=== PATIENT | male | born 1940 | race Caucasian/White ===

== ENCOUNTER → 2016-08-27 | Outpatient (CLI) | payer MEDICARE, OTHER ==
--- NOTE | 2016-08-27 07:34 | US ---
EXAMINATION TYPE: US abdomen complete DATE OF EXAM: 08/27/2016 7:14 AM COMPARISON: Renal ultrasound 02/13/2016. CLINICAL HISTORY: 76-year-old male with hepatosplenomegaly , pain RUQ on physician's exam. TECHNIQUE: Multiple sonographic images of the abdomen were obtained. FINDINGS: Liver Length:15.2 cm Gallbladder Wall: 0.3 cm, upper limits of normal. CBD: 0.3 cm Spleen: 11.3 cm Right Kidney: 10.8 x 4.7 x 3.9 cm Left Kidney: 10.2 x 4.8 x 3.8 cm Pancreas: large body habitus, overlying bowel gas not seen well Liver: Normal size with overall normal homogeneous echotexture and no focal lesion. Gallbladder: No abnormal gallbladder distention, wall thickening, or pericholecystic fluid. Multiple shadowing calculi are present measuring up to 1.5 cm. Evidence for sonographic Pollack's sign: No CBD: Within normal limits. Spleen: Within normal limits. Right Kidney: No hydronephrosis. There is a tiny 6 mm hypoechoic structure within the midpole probabl y representing a small cyst. Internal echoes could represent debris or artifact. Left Kidney: No hydronephrosis. There is a small 8 mm parapelvic cyst at the midpole. Upper IVC: large body habitus, overlying bowel gas, not seen well Abd Aorta: large body habitus, overlying bowel gas, not seen well IMPRESSION: 1. Liver and spleen measurements as above. 2. Suboptimal visualization of the pancreas, IVC, and abdominal aorta with a subcentimeter probable c yst within each kidney. Otherwise, unremarkable sonographic examination of the abdomen. Normal Values: Liver Length: < 16cm wnl, 17-18cm upper limits, >18cm enlarged Spleen Length = < 13cm Renal Length = 9 - 12cm GB Wall: < 0.3cm CBD: < 0.6cm or < 1.0cm post cholecystectomy
== END | disposition home or self-care (01) ==
LOC: RADUSWWP 06:50
PROVIDERS: ATTEND Internal Medicine
DX: R16.2 Hepatomegaly with splenomegaly, not elsewhere classified (principal)
CPT/HCPCS: 76700

== ENCOUNTER → 2016-11-10 | Outpatient (CLI) | payer MEDICARE, OTHER ==
[2016-11-10 13:18] LABS: Calcium 9.1 mg/dL (8.4-10.2); Potassium 4.8 mmol/L (3.5-5.1)
== END | disposition home or self-care (01) ==
LOC: LABWHC1 12:21
PROVIDERS: ATTEND Internal Medicine
DX: M19.90 Unspecified osteoarthritis, unspecified site (principal); T50.905A Adverse effect of unspecified drugs, medicaments and biological substances, initial encounter
CPT/HCPCS: 36415; 80048; 84450; 84460

== ENCOUNTER → 2017-02-17 | Outpatient (CLI) | payer MEDICARE, OTHER ==
[2017-02-17 10:02] LABS: Basophils % (A) 1 %; CH 32.5; CHCM 33.3; Eosinophils # (A) 0.5 k/uL (0-0.7); Eosinophils % (A) 8 %; HCT 42.4 % (39.0-53.0); HDW 2.19; HGB 14.5 gm/dL (13.0-17.5); Luc # (Auto) 0.07; Luc % (Auto) 1; Lymphocytes # (A) 1.3 k/uL (1.0-4.8); Lymphocytes % (A) 21 %; MCH 33.5 pg (25.0-35.0); MCHC 34.2 g/dL (31.0-37.0); MCV 97.9 fL (80.0-100.0); Monocytes # (A) 0.3 k/uL (0-1.0); Monocytes % (A) 4 %; Neutrophils % (A) 65 %; RBC 4.33 m/uL (4.30-5.90); RDW 13.3 % (11.5-15.5); WBC 6.2 k/uL (3.8-10.6); WBC (Perox) 6.28
[2017-02-17 11:16] LABS: Erythrocyte Sedimentation Rate 3 mm/hr (0-15)
[2017-02-17 12:23] LABS: ALT 29 U/L (21-72); AST 27 U/L (17-59); Alkaline Phosphatase 56 U/L (38-126); Anion Gap 9 mmol/L; Blood Urea Nitrogen 30 mg/dL (9-20); Calcium 9.3 mg/dL (8.4-10.2); Carbon Dioxide 27 mmol/L (22-30); Chloride 108 mmol/L (98-107); Cholesterol 108 mg/dL (<200); Creatine Kinase 41 U/L (55-170); Glucose 102 mg/dL (74-99); HDL Cholesterol 43 mg/dL (40-60); Non-African American GFR(MDRD) 46 (>60 ml/min/1.73 sqM); Potassium 4.9 mmol/L (3.5-5.1); Sodium 144 mmol/L (137-145); Total Bilirubin 0.8 mg/dL (0.2-1.3); Total Protein 6.8 g/dL (6.3-8.2); Triglycerides 58 mg/dL (<150); Uric Acid 5.2 mg/dL (3.5-8.5)
[2017-02-17 13:54] LABS: Hemoglobin A1C 5.7 % (4.2-6.1)
[2017-02-17 14:26] LABS: C Reactive Protein <5.0 mg/L (<10.0)
== END | disposition home or self-care (01) ==
LOC: LABWHC1 09:16
PROVIDERS: ATTEND Internal Medicine
DX: Z00.00 Encounter for general adult medical examination without abnormal findings (principal); I12.9 Hypertensive chronic kidney disease with stage 1 through stage 4 chronic kidney disease, or unspecified chronic kidney disease; N18.3 Chronic kidney disease, stage 3 (moderate); E78.5 Hyperlipidemia, unspecified; E55.9 Vitamin D deficiency, unspecified; N40.0 Benign prostatic hyperplasia without lower urinary tract symptoms; J44.9 Chronic obstructive pulmonary disease, unspecified; M10.9 Gout, unspecified; I25.10 Atherosclerotic heart disease of native coronary artery without angina pectoris
CPT/HCPCS: 36415; 80053; 80061; 82306; 82550; 83036; 84153; 84443; 84550; 85025; 85652; 86140

== ENCOUNTER → 2017-08-19 | Outpatient (CLI) | payer MEDICARE, OTHER ==
[2017-08-19 10:15] LABS: HCT 44.2 % (39.0-53.0); HGB 13.6 gm/dL (13.0-17.5); MCH 31.3 pg (25.0-35.0); MCHC 30.8 g/dL (31.0-37.0); MCV 101.7 fL (80.0-100.0); Macrocytosis Slight; Mean Platelet Volume 7.7; Platelet Count 202 k/uL (150-450); RBC 4.35 m/uL (4.30-5.90); WBC 7.7 k/uL (3.8-10.6)
[2017-08-19 10:31] LABS: Calcium 9.5 mg/dL (8.4-10.2); Potassium 5.1 mmol/L (3.5-5.1)
== END | disposition home or self-care (01) ==
LOC: LABWHC1 09:48
PROVIDERS: ATTEND Internal Medicine Clinical Cardiac Electrophysiology
DX: I48.1 Persistent atrial fibrillation (principal)
CPT/HCPCS: 36415; 80048; 85027

== ENCOUNTER 2017-09-02 09:16 | Day surgery (SDC) | payer MEDICARE, OTHER ==
[2017-08-25 13:03] VITALS: BMI 30.1
[~2017-09-02 09:16] MED LIST: SODIUM CHLORIDE 0.9% 1,000 ML IV ONE
[2017-09-02] MEDS ORDERED: ceFAZolin IN SWFI 2 GM/20 ML SYRINGE IVP STA (09:38)
[2017-09-02 10:18] LABS: Anion Gap 10 mmol/L; Blood Urea Nitrogen 27 mg/dL (9-20); Calcium 9.5 mg/dL (8.4-10.2); Carbon Dioxide 27 mmol/L (22-30); Chloride 107 mmol/L (98-107); Glucose 101 mg/dL (74-99); Potassium 4.3 mmol/L (3.5-5.1); Sodium 144 mmol/L (137-145)
[2017-09-02] MEDS ORDERED: fentaNYL (PF) 50 MCG/ML 2 ML AMP ONE (10:19)
[2017-09-02] MEDS ORDERED: SODIUM CHLORIDE 0.9% 1,000 ML IV ONE (10:19)
[2017-09-02] MEDS ORDERED: PROTAMINE SULFATE 10 MG/ML 25 ML VIAL IV ONE (10:19)
[2017-09-02] MEDS ORDERED: HYDROmorphone (PF) 1 MG/ML ONE (10:19)
[2017-09-02] MEDS ORDERED: HEPARIN SODIUM,PORCINE 10,000 UNIT/ML 1 ML VIAL ONE (10:19)
[2017-09-02] MEDS ORDERED: SUCCINYLCHOLINE CHLORIDE 100 MG/5 ML SYR IV ONE (10:19)
[2017-09-02] MEDS ORDERED: ePHEDrine SULFATE/0.9% NACL/PF 50 MG/5 ML SYRINGE IV ONE ×2 (10:19)
[2017-09-02] MEDS ORDERED: MIDAZOLAM 2 MG/2 ML VIAL ONE (10:19)
[2017-09-02] MEDS ORDERED: PROPOFOL 10 MG/ML 20 ML VIAL IV ONE (10:19)
[2017-09-02] MEDS ORDERED: LIDOCAINE 2% INJ 20 MG/ML SQ ONE ×2 (11:01→11:05)
[2017-09-02] MEDS ORDERED: HEPARIN SOD,PORK IN 0.45% NACL 25,000 UNIT in 0.45% NACL 1 500ML.BAG IV ONE ×2 (11:06)
[2017-09-02] MEDS ORDERED: IOHEXOL 350 MG/ML (PER ML) 100ML BTL INJ ONE (14:18)
--- NOTE | 2017-09-02 14:36 | P.PCN ---
Preoperative Diagnosis: Procedures performed (PVI - CRYO Ablation) Invasive hemodynamic monitoring while general anesthesia, right femoral arterial line for monitoring and sampling Comprehensive diagnostic EP study with attempted arrhythmia induction CS pacing and recording Drug infusion Catheter the mapping of the tachycardia (NOT 3D mapping) Intracardiac echocardiography Pulmonary vein isolation with transseptal and comprehensive EPS, 53330 Procedure details Patient was brought to the EP lab in a fasting state. Written informed consent was obtained prior to the procedure. Procedure performed under general anesthesia After initial muscle relaxant use, muscle relaxants were not given thereafter in order to assess phrenic nerve during procedure Patient prepped and draped as per protocol Full cryo-set up with standard preparation of the cryoablation tools done Femoral Venous access obtained on the right and left groins Sheaths placed Diagnostic catheters for the high right atrium, phrenic nerve stimulation and pacing, His bundle, RV and coronary sinus placed Intracardiac echo catheter placed Long sheath placed in the right atrium Left and right transseptal catheterization performed under intracardiac echo guidance Intravenous heparin with aCT above 300 Later, catheter positioning and balloon positioning under intracardiac echo Baseline measurements Tachycardia cycle length 240 ms, eccentric activation in the coronary sinus. In sinus rhythm [place] interval 230 ms, QRS 112 ms, QT interval 440 ms HV interval difficult to obtain despite multiple attempts Comprehensive diagnostic EP study with drug infusion Atrial pacing performed from the high right atrium and the coronary sinus Entrainment mapping of the right atrium, left atrium and coronary sinus PPI greater than 450-500 ms in the lateral RA PPI between 280-300 ms in the right atrial septum PPI 260 ms in the mid-distal coronary sinus PPI 270-280 ms in the lateral LA Long PPI from the left atrial roof Transseptal catheterization performed RA pressure 11/5/8 LA pressure 17/5/11 Transseptal catheterization performed with standard sheath. The cryoablation sheath was then placed with an over the wire exchange without any acute complications. All 4 pulmonary veins were isolated in the following sequence: Left superior followed by left inferior followed by right superior followed by right inferior The cryo-ablation balloon was placed at the os of each vein 1.5 mL of IV dye was injected to confirm an occluded vein Goal during cryoablation was to achieve -30C in the first 30 seconds. If not the balloon was repositioned to obtain this result After completion of Cryoblation with durations from 180-240 seconds, entrance block was confirmed with the Attain circular catheter in a roving fashion around the antrum of the pulmonary veins Phrenic nerve pacing was performed from the SVC, right innominate vein area and diaphragm voltage was monitored as well as manually Parameter goals for each cryo freeze -30C by 30 seconds -40C by 60 seconds Mediated between minus 40-55 Thaw time greater than 10 seconds Balloon visualized by intracardiac echo to ensure that the proximal one third was within the left atrium/antrum Left superior pulmonary vein 2 Cryoblation's him a 118 seconds and 150 seconds, complete isolation, time to effect with the first lesion 80 seconds Left inferior pulmonary vein 3 minute lesion, single lesion time to effect less than 30 seconds Right superior pulmonary vein, during phrenic nerve pacing Single cryoablation 3 minutes, complete isolation Right inferior pulmonary vein, during phrenic nerve pacing 2 cryo lesions, 3 minutes each, complete isolation Roofline Roofline was made in the left atrium from the right superior to the left superior pulmonary veins. 3 balloon inflations, 60 seconds of cryoablation each Significant reduction in that program amplitude Electrical cardioversion 360 J biphasic shock, successful electrical cardioversion for atrial paced rhythm At the end of the procedure the Achieve catheter was once again used to check for entrance block Phrenic nerve stimulation was performed to confirm diaphragmatic stimulation the end of the procedure Cine fluoroscopy was performed at the very end of the procedure to confirm movement of both diaphragms with inspiration and expiration At the end of the procedure the patient was extubated Heparin was reversed Venous sheaths were removed and hemostasis assured Result Successful pulmonary vein isolation using cryo-ablation Roofline, 3 lesions 60 seconds each, significant reduction in amplitude Electrical cardioversion for atrial tachycardia cycle length of 240 ms, eccentric activation in the CS closest in treatment in the mid to distal CS and lateral LA Complete entrance block in all 4 veins confirmed No evidence for phrenic nerve injury Anesthesia: GETA Condition: stable
[2017-09-02] MEDS ORDERED: LACTATED RINGERS 1,000 ML IV ONE (14:38)
[2017-09-02] MEDS ORDERED: ACETAMINOPHEN TAB 325 MG TAB PO PRN (15:12)
[2017-09-02] MEDS ORDERED: HYDROcodone/APAP 5-325MG 1 EACH TAB PO PRN (15:12)
[2017-09-02] MEDS: ACETAMINOPHEN IV (For NPO) 1,000 MG in EMPTY BAG 1 BAG IVPB ONE ×2 (15:15→15:30)
--- NOTE | 2017-09-02 16:32 | CE ---
CARDIAC ELECTROPHYSIOLOGY REPORT Mr. Gonzalez Muniz underwent atrial fibrillation ablation. He has a dual-chamber pacemaker was interrogated and reprogrammed to DDD mode. Impedance was stable. At the end of the procedure. The pacemaker was reinterrogated and reprogrammed. Atrial pacing threshold 0.7 V at 0.4 milliseconds. P waves 2.2 mV. Pacing impedance 380 ohms. RV pacing 1 V at 0.4 milliseconds. Sensing greater than 12 mV. Pacing impedance of 400 ohms. The pacing is programmed to DDDR mode, 50-130 ppm with a VIP mode turned on to minimize RV pacing. IMPRESSION: Stable pacemaker function post atrial fibrillation ablation. MMODL / IJN: [id number] /
[2017-09-02] MEDS ORDERED: ATORVASTATIN 40 MG TAB PO SCH (21:00)
[2017-09-02] MEDS ORDERED: FAMOTIDINE 20 MG TAB PO SCH (21:00)
[2017-09-02] MEDS: CARVEDILOL 6.25 MG TAB PO SCH (21:19)
[2017-09-03] MEDS ORDERED: FUROSEMIDE 40 MG TAB PO STA (07:49)
[2017-09-03] MEDS: CARVEDILOL 6.25 MG TAB PO SCH (08:13)
--- NOTE | 2017-09-03 08:14 | P.DS ---
Providers Attending physician: Hugo Khoury Primary care physician: [facility] Course: Patient is doing well from a chronic standpoint. He is lying comfortably in bed. He did walk up to the bathroom. Yesterday he had some oozing from the groin but now it has settled down. There is no bleeding there is no swelling there is minimal to no pain to touch On examination he is afebrile 97.6 daily Fahrenheit, pulse rate in the 50s sinus rhythm respirations normal no S3 distress blood pressure 141/62 mmHg Heart sounds S1-S2 are normal no murmurs no gallops no rub Breath sounds are clear occasional crackles, scattered at the bases Abdomen soft nontender Groins healed well as minimal to no tenderness no swelling No lower extremity edema Impression Recurrent paroxysmal atrial fibrillation, increasing A. fib burden over the last few years. 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 Prior to cardioversion with catheter mapping it was determined that the PPI was best in the mid to distal coronary sinus and the lateral aspect of the left atrium Once visit recurrence of atrial tachycardia he'll be brought back for EP study and wrapping and radial frequency ablation. No changes in medications Continue ROYERA Plan Discharge home by 3 PM if he is stable and groins healing well. He's been instructed amulet in the hallways 1 dose of Lasix 40 mg by mouth stat Plan - Discharge Summary New Discharge Prescriptions: Continue Montelukast [Singulair] 10 mg PO QAM Famotidine 40 mg PO HS Aspirin 81 mg PO DAILY #30 chewable Atorvastatin [Lipitor] 40 mg PO HS Fluticasone Nasal [place] [Flonase Nasal [place]] 1 spr EA NOSTRIL DAILY PRN PRN Reason: Allergy Symptoms amLODIPine [Norvasc] 10 mg PO DAILY Tamsulosin [Flomax] 0.4 mg PO DAILY Edoxaban Tosylate [Savaysa] 60 mg PO DAILY Diclofenac Sodium [Voltaren] 50 mg PO BID Carvedilol [Coreg] 6.25 mg PO BID Allopurinol [Zyloprim] 100 mg PO DAILY Losartan Potassium 100 mg PO DAILY Discharge Medication List Famotidine 40 mg PO HS 03/26/14 [History] Montelukast [Singulair] 10 mg PO QAM 03/26/14 [History] Aspirin 81 mg PO DAILY #30 chewable 03/27/14 [Rx] Atorvastatin [Lipitor] 40 mg PO HS 04/24/14 [History] Fluticasone Nasal [place] [Flonase Nasal [place]] 1 spr EA NOSTRIL DAILY PRN [History] Allopurinol [Zyloprim] 100 mg PO DAILY 08/25/17 [History] Carvedilol [Coreg] 6.25 mg PO BID 08/25/17 [History] Diclofenac Sodium [Voltaren] 50 mg PO BID 08/25/17 [History] Edoxaban Tosylate [Savaysa] 60 mg PO DAILY 08/25/17 [History] Losartan Potassium 100 mg PO DAILY 08/25/17 [History] Tamsulosin [Flomax] 0.4 mg PO DAILY 08/25/17 [History] amLODIPine [Norvasc] 10 mg PO DAILY 08/25/17 [History] Follow up Appointment(s)/Referral(s): Hugo Khoury MD [STAFF PHYSICIAN] - 2 Weeks Patient Instructions/Handouts: Cardiac Ablation (DC) Activity/Diet/Wound Care/Special Instructions: Post EP study - Ablation instructions 1. Keep access sites dry for 2 days. 2. No heavy lifting or straining for 2 days. 3. Avoid bending the hips repeatedly for 2 days. 4. You may go up and down stairs slowly Call if the following is noted 1. Bleeding, increasing swelling or pain at the access sites. 2. Increasing chest discomfort, especially upon taking a deep breath. 3. Increasing shortness of breath, at rest or with exertion. 4. Undue cough / phlegm 5. Difficulty or pain while swallowing. 6. Pain or change in color in the extremities. 7. Fever, chills, rigors. 8. Increasing headache or neurologic symptoms. 9. Dizziness, fainting, palpitations Follow-up with Dr. Khoury about 2 weeks. No changes in home medications and continue anticoagulation Discharge Disposition: HOME SELF-CARE
[2017-09-03] MEDS ORDERED: EDOXABAN TOSYLATE 60 MG TABLET PO SCH (09:00)
[2017-09-03] MEDS ORDERED: amLODIPine 10 MG TAB PO SCH (09:00)
[2017-09-03] MEDS ORDERED: LOSARTAN 50 MG TAB PO SCH (09:00)
[2017-09-03] MEDS ORDERED: TAMSULOSIN 0.4 MG CAP.ER.24H PO SCH (09:00)
[2017-09-03] MEDS ORDERED: ALLOPURINOL 100 MG TAB PO SCH (09:00)
[2017-09-03] MEDS ORDERED: MONTELUKAST 10 MG TAB PO SCH (09:00)
[2017-09-03] MEDS ORDERED: ASPIRIN 81 MG PO SCH (09:00)
[2017-09-03 11:57] VITALS: BP 122/58; PULSE 56; RESP 18; TEMP 97.1
[2017-09-04] MEDS ORDERED: EDOXABAN TOSYLATE 30 MG TABLET PO SCH (09:00)
== END 2017-09-03 15:16 | disposition home or self-care (01) ==
LOC: CATHEP 09:16 → 6SEL 13:50 → CATHEP 09-03 15:16
PROVIDERS: ATTEND Internal Medicine Clinical Cardiac Electrophysiology
DX: I48.0 Paroxysmal atrial fibrillation (principal); Z79.01 Long term (current) use of anticoagulants; I25.10 Atherosclerotic heart disease of native coronary artery without angina pectoris; I10 Essential (primary) hypertension; Z95.1 Presence of aortocoronary bypass graft; Z95.0 Presence of cardiac pacemaker; E78.5 Hyperlipidemia, unspecified; I73.9 Peripheral vascular disease, unspecified; Z82.49 Family history of ischemic heart disease and other diseases of the circulatory system; I49.5 Sick sinus syndrome; I25.2 Old myocardial infarction; I42.8 Other cardiomyopathies; Z95.5 Presence of coronary angioplasty implant and graft; I25.5 Ischemic cardiomyopathy; G47.33 Obstructive sleep apnea (adult) (pediatric); Z79.02 Long term (current) use of antithrombotics/antiplatelets; Z79.82 Long term (current) use of aspirin; Z79.51 Long term (current) use of inhaled steroids; Z79.899 Other long term (current) drug therapy
CPT/HCPCS: 92960; 93662; 93609; 93656; 80048; 84443; C1894 ×3; C1769 ×4; C1730 ×3; C1759; C1893; C1733; C1766; J2001; J2720; J2250; J1644 ×2; Q9967; J0690; J3010; J1170; J0131; J0330; J2704

== ENCOUNTER → 2018-02-03 | Day surgery (SDC) | payer MEDICARE, OTHER ==
[2018-01-31 11:03] VITALS: BMI 29.4
[~2018-02-03] MED LIST changes: -SODIUM CHLORIDE 0.9% 1,000 ML IV ONE; +SODIUM CHLORIDE 0.9% 1,000 ML IV SCH
[2018-02-03 06:55] VITALS: PULSE 60; RESP 18; TEMP 97.7
[2018-02-03] MEDS: IOPAMIDOL-250 50ML BTL IV ONE ×2 (07:26→07:37)
--- NOTE | 2018-02-03 07:54 | P.PCN ---
Preoperative Diagnosis: Left upper extremity venogram Indication for the procedure: Patient awaiting upgrade to an LV lead, biventricular pacemaker prior to AV junction modification Details of procedure Left upper extremity venogram was performed. Occlusion was noted at 2 levels 1 at the axillary subclavian junction and the second within the subclavian to its the innominate vein. 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
[2018-02-03 08:00] VITALS: BP 161/80
== END ==
LOC: CATHEP 06:28
PROVIDERS: ATTEND Internal Medicine Clinical Cardiac Electrophysiology
DX: I67.2 Cerebral atherosclerosis (principal); I10 Essential (primary) hypertension; I47.1 Supraventricular tachycardia; I25.5 Ischemic cardiomyopathy; Z95.0 Presence of cardiac pacemaker; I25.10 Atherosclerotic heart disease of native coronary artery without angina pectoris; I73.9 Peripheral vascular disease, unspecified; E78.5 Hyperlipidemia, unspecified; Z82.49 Family history of ischemic heart disease and other diseases of the circulatory system; Z95.1 Presence of aortocoronary bypass graft; Z95.5 Presence of coronary angioplasty implant and graft; I25.2 Old myocardial infarction; Z79.02 Long term (current) use of antithrombotics/antiplatelets; Z79.82 Long term (current) use of aspirin; Z79.51 Long term (current) use of inhaled steroids; Z79.899 Other long term (current) drug therapy
CPT/HCPCS: 36005; 75820; Q9966

== ENCOUNTER → 2018-02-23 | Outpatient (CLI) | payer MEDICARE, OTHER ==
[2018-02-23 10:05] LABS: Basophils % (A) 0 %; Eosinophils # (A) 0.4 k/uL (0-0.7); Eosinophils % (A) 7 %; HCT 42.5 % (39.0-53.0); HGB 13.8 gm/dL (13.0-17.5); Lymphocytes # (A) 1.2 k/uL (1.0-4.8); Lymphocytes % (A) 20 %; MCHC 32.5 g/dL (31.0-37.0); MCV 98.5 fL (80.0-100.0); Mean Platelet Volume 6.9; Monocytes # (A) 0.4 k/uL (0-1.0); Monocytes % (A) 6 %; Neutrophils % (A) 66 %; Platelet Count 191 k/uL (150-450); RBC 4.32 m/uL (4.30-5.90); RDW 13.3 % (11.5-15.5); WBC 6.1 k/uL (3.8-10.6)
[2018-02-23 11:51] LABS: Erythrocyte Sedimentation Rate 5 mm/hr (0-15)
[2018-02-23 14:37] LABS: ALT 37 U/L (21-72); AST 31 U/L (17-59); Alkaline Phosphatase 55 U/L (38-126); Anion Gap 8 mmol/L; Blood Urea Nitrogen 34 mg/dL (9-20); C Reactive Protein <5.0 mg/L (<10.0); Calcium 9.5 mg/dL (8.4-10.2); Carbon Dioxide 28 mmol/L (22-30); Chloride 109 mmol/L (98-107); Cholesterol 106 mg/dL (<200); Creatine Kinase 56 U/L (55-170); Glucose 98 mg/dL (74-99); HDL Cholesterol 39 mg/dL (40-60); LDL Cholesterol,Calculated 58 mg/dL (0-99); Magnesium 2.2 mg/dL (1.6-2.3); Phosphorus 3.4 mg/dL (2.5-4.5); Potassium 4.9 mmol/L (3.5-5.1); Sodium 145 mmol/L (137-145); Total Bilirubin 0.6 mg/dL (0.2-1.3); Total Protein 6.4 g/dL (6.3-8.2); Triglycerides 45 mg/dL (<150); Uric Acid 5.9 mg/dL (3.5-8.5)
[2018-02-23 14:46] LABS: Prostate Specific Antigen 2.16 ng/mL (0.00-4.00)
[2018-02-23 16:31] LABS: Vitamin D 25 Hydroxy 43.7 ng/mL (30.0-100.0)
[2018-02-23 18:14] LABS: Hemoglobin A1C 5.4 % (4.0-6.0)
[2018-02-23 18:51] LABS: Parathyroid Hormone Intact 63.6 pg/mL (14.0-72.0)
== END | disposition home or self-care (01) ==
LOC: LABWHC1 09:15
PROVIDERS: ATTEND Internal Medicine
DX: N40.0 Benign prostatic hyperplasia without lower urinary tract symptoms (principal); J44.9 Chronic obstructive pulmonary disease, unspecified; E11.22 Type 2 diabetes mellitus with diabetic chronic kidney disease; I12.9 Hypertensive chronic kidney disease with stage 1 through stage 4 chronic kidney disease, or unspecified chronic kidney disease; N18.3 Chronic kidney disease, stage 3 (moderate); E78.5 Hyperlipidemia, unspecified; E03.9 Hypothyroidism, unspecified; E55.9 Vitamin D deficiency, unspecified
CPT/HCPCS: 36415; 80053; 80061; 82306; 82550; 83036; 83735; 83970; 84100; 84153; 84443; 84550; 85025; 85652; 86140

== ENCOUNTER 2018-03-01 09:17 | Day surgery (SDC) | payer MEDICARE, OTHER ==
[2018-02-23 13:20] VITALS: BMI 28.5
[~2018-03-01 09:17] MED LIST changes: +DEXAMETHASONE SOD PHOSPHATE 10 MG/ML 1 ML VIAL IV ONE; +LACTATED RINGERS 1,000 ML IV SCH; +LIDOCAINE 1% 20 ML VIAL (10MG/ML) FOR IV START INTRADERMA PRN; +MIDAZOLAM 2 MG/2 ML VIAL IV PRN; +ONDANSETRON 4 MG/2 ML VIAL IVP ONE; +fentaNYL (PF) 50 MCG/ML 2 ML AMP IV PRN
[2018-03-01] MEDS ORDERED: SODIUM CHLORIDE 0.9% 1,000 ML IV ONE (09:56)
[2018-03-01] MEDS ORDERED: ceFAZolin IN SWFI 2 GM/20 ML SYRINGE IVP ONE (10:30)
[2018-03-01] MEDS ORDERED: PROTAMINE SULFATE 10 MG/ML 5 ML VIAL IV ONE (10:41)
[2018-03-01] MEDS ORDERED: NEOSTIGMINE 1 MG/ML 10 ML VIAL ONE (10:41)
[2018-03-01] MEDS ORDERED: fentaNYL (PF) 50 MCG/ML 2 ML AMP ONE (10:41)
[2018-03-01] MEDS ORDERED: SUCCINYLCHOLINE CHLORIDE 100 MG/5 ML SYR IV ONE (10:41)
[2018-03-01] MEDS ORDERED: GLYCOPYRROLATE 0.2 MG/ML 2 ML VIAL ONE (10:41)
[2018-03-01] MEDS ORDERED: ISOPROTERENOL 250 MCG/1.25 ML SYR IV ONE (10:41)
[2018-03-01] MEDS ORDERED: PHENYLEPHRINE-0.9% NACL SYG 1 MG/10 ML SYRINGE ONE (10:41)
[2018-03-01] MEDS ORDERED: HEPARIN SODIUM,PORCINE 10,000 UNIT/ML 1 ML VIAL ONE (10:41)
[2018-03-01] MEDS ORDERED: VECURONIUM 10 MG VIAL IV ONE (10:41)
[2018-03-01] MEDS ORDERED: MIDAZOLAM 2 MG/2 ML VIAL ONE (10:41)
[2018-03-01] MEDS ORDERED: PROPOFOL 10 MG/ML 20 ML VIAL IV ONE (10:41)
[2018-03-01] MEDS ORDERED: LIDOCAINE 1% INJ 10MG/ML (20 ML MDV) ONE (11:03)
[2018-03-01] MEDS ORDERED: LIDOCAINE 1% INJ 10MG/ML (20 ML MDV) SQ ONE (11:42)
[2018-03-01] MEDS ORDERED: HEPARIN SODIUM (1,000 UNIT/ML) 1,000 UNIT in SODIUM CHLORIDE 0.9% 1,000 ML IRRIGATION ONE (12:53)
[2018-03-01] MEDS ORDERED: HEPARIN SODIUM,PORCINE/D5W PMX 25,000 UNIT in DEXTROSE/WATER 1 500ML.BAG IV ONE (12:53)
[2018-03-01] MEDS ORDERED: ACETAMINOPHEN TAB 325 MG TAB PO PRN (16:00)
[2018-03-01] MEDS ORDERED: ACETAMINOPHEN IV (For NPO) 1,000 MG in EMPTY BAG 1 BAG IVPB ONE (16:00)
[2018-03-01] MEDS ORDERED: HYDROcodone/APAP 5-325MG 1 EACH TAB PO PRN (16:00)
--- NOTE | 2018-03-01 17:26 | CE ---
CARDIAC ELECTROPHYSIOLOGY REPORT Gonzalez Muniz is a 78-year-old male patient who has undergone 2 ablations in the past, one in 2016 for atrial flutter and a second one for atrial fibrillation with PVI about 7 months back. He came to the office with an atrial tachycardia with negatively oriented electrograms in the inferior leads and positive in lead V1. He was brought in for an EP study and ablation. When he was brought to the EP lab he was in atrial fibrillation with ventricular pacing. When he is in sinus rhythm his V pacing percentage is very low. When in atrial fibrillation his V pacing percentage is very high, close to 100%. He has cardiomyopathy, ejection fraction 45%, which is ischemic in nature. He has had coronary artery disease, coronary artery bypass grafting in the past. Venous sheaths were placed in the right and left femoral veins and high right atrial catheter, His bundle catheter and coronary sinus catheter were placed. Later an intracardiac echo catheter and mapping ablation catheter were placed. He was in atrial fibrillation at the start of the study with intracardiac electrograms revealing an organized atrial fibrillation, but definitely not an atrial tachycardia. The surface ECG also suggested atrial fibrillation, not an atrial tachycardia. Therefore he first underwent electrical cardioversion under anesthesia. Following that, a detailed EP study was performed to induce atrial tachycardia, but we were unsuccessful inducing atrial tachycardia with pacing from the high right atrium, coronary sinus and with burst stimulation and extrastimulation from multiple sites up to triple extrastimuli, both on and off Isuprel. Sinus node recovery times were checked. AV node conduction, VA conduction was interrogated. Following that, a decision was made to proceed with mapping of the right and left atria, to interrogate the pulmonary veins, roof line in the left atrium connecting the 2 superior veins as well as interrogate the right atrial flutter line. Intracardiac echocardiography was performed. The interatrial septum was identified. Pulmonary veins were identified and tagged. Transseptal catheterization was performed. RA pressure 10 x 5 x 8 mmHg, LA pressure 26 x 3 x 14 mmHg. A sheath was placed in the left atrium and an irrigated-tip catheter was placed in the left atrium. Voltage mapping was performed. This revealed that the left-sided veins were completely quiescent. The right-sided veins were also quiescent, but in the nico anteriorly there was evidence for recovery of conduction. This was in the anterior nico close to the antrum. First pulmonary vein isolation was performed and an RF ablation was performed from the roof down to the 6 o'clock position with special emphasis on the antral aspect of the nico. RF ablation was applied in this area and there were no further electrograms noted here. Non-capture was noted here. An exit block was noted from the right-sided veins. Previously the left-sided veins had been interrogated, and exit blocks had already been proven. Exit block was noted from all of the sites in the right superior and right inferior pulmonary veins. Left atrial roof line was made. The irrigated catheter was used and a power of 225 serrato was used. Complete RF line of block was made, which was interrogated with pacing maneuvers as well as on 100% grid. No anatomic gaps were noted. Following that, the catheter was withdrawn. Heparin was stopped and the right atrial isthmus was interrogated. Intracardiac echocardiography was used to make an anatomic map. Voltage map was then performed. There was an area of normal voltage in the mid isthmus and once this was ablated, there was complete line of block. However, a complete anatomic line of RF block was made once again in the cava tricuspid isthmus and with differential pacing proved bidirectional block. At the start of the procedure, the permanent pacemaker was interrogated and was reprogrammed to VVI mode at 50 beats per minute. At the end of the procedure, the pacemaker was interrogated. The RV threshold was less than 0.75 V at 0.5 milliseconds with a pacing impedance of 750 ohms. The device was then reprogrammed to DDDR mode with VIP mode on to minimize RV pacing. Rate responsiveness was turned on for the pacemaker. RESULT: 1. Patient presented with atrial fibrillation and required electrical cardioversion. 2. No atrial tachycardias were inducible despite atrial stimulation, burst stimulation, and with up to triple extrastimuli from multiple sites, both on and off Isuprel. 3. Pulmonary vein isolation as described above. 4. Linear ablation, left atrial roof, roof line. 5. Atrial flutter ablation. Patient tolerated the procedure well without any acute complications. PLAN: Continue anticoagulation. Please note that the patient's GFR was between 45 and 50. His creatinine was about 1.4 and hence dofetilide and sotalol were not considered. In addition, he has an occluded left subclavian venous system that needs a laser lead extraction to implant his bundle or an LV lead. Hence this has not yet been considered. MMODL / IJN: [id number] /
[2018-03-01] MEDS: CARVEDILOL 6.25 MG TAB PO SCH (18:53)
[2018-03-01] MEDS ORDERED: amLODIPine 10 MG TAB PO SCH (21:00)
[2018-03-01] MEDS ORDERED: ATORVASTATIN 40 MG TAB PO SCH (21:00)
[2018-03-01] MEDS ORDERED: FAMOTIDINE 20 MG TAB PO SCH (21:00)
[2018-03-01] MEDS ORDERED: ALLOPURINOL 100 MG TAB PO SCH (21:00)
[2018-03-01] MEDS ORDERED: TAMSULOSIN 0.4 MG CAP.ER.24H PO SCH (21:00)
[2018-03-02] MEDS: CARVEDILOL 6.25 MG TAB PO SCH (08:20)
[2018-03-02] MEDS ORDERED: LOSARTAN 50 MG TAB PO SCH (09:00)
[2018-03-02] MEDS ORDERED: ASPIRIN 81 MG PO SCH (09:00)
[2018-03-02] MEDS ORDERED: MONTELUKAST 10 MG TAB PO SCH (09:00)
[2018-03-02] MEDS ORDERED: EDOXABAN TOSYLATE 60 MG TABLET PO SCH (09:00)
--- NOTE | 2018-03-02 12:03 | DS ---
DISCHARGE SUMMARY Mr. Gonzalez Muniz is a 78-year-old male patient who underwent pulmonary vein isolation, left atrial roof line and atrial flutter ablation yesterday. He is doing well. He is in sinus rhythm. Head and neck examination is normal. Heart sounds are normal. Breath sounds are clear. His vitals are stable. He is sitting comfortably in bed. His groins have healed well. There is no hematoma. There is no swelling. Blood pressure 142/73 mmHg, pulse rate in the 50s, afebrile 97.9 degree Fahrenheit. Head and neck examination is normal. Heart sounds are normal. Lungs are clear on auscultation. IMPRESSION: 1. Pulmonary vein isolation, linear ablation of the left atrium, atrial flutter ablation, right-sided. 2. Persistent atrial fibrillation. 3. Sick sinus syndrome, status post permanent pacemaker implantation. 4. A 100% RV pacing during atrial fibrillation. 5. Mild ischemic cardiomyopathy, ejection fraction 45%. 6. Underlying coronary artery disease. SUGGEST: Continue anticoagulation. Continue current medications for ischemic cardiomyopathy and CAD and follow up with Dr. Khoury in 2 weeks. He will go home after his permanent pacemaker is interrogated. MMODL / IJN: [id number] /
[2018-03-02 13:24] VITALS: BP 149/83; PULSE 50; RESP 16; TEMP 98.3
== END 2018-03-02 13:58 | disposition home or self-care (01) ==
LOC: CATHEP 09:17 → 3OBS 15:35 → CATHEP 03-02 13:58
PROVIDERS: ATTEND Internal Medicine Clinical Cardiac Electrophysiology
DX: I47.1 Supraventricular tachycardia (principal); I25.5 Ischemic cardiomyopathy; I25.10 Atherosclerotic heart disease of native coronary artery without angina pectoris; I10 Essential (primary) hypertension; I49.5 Sick sinus syndrome; I25.2 Old myocardial infarction; E78.5 Hyperlipidemia, unspecified; Z95.1 Presence of aortocoronary bypass graft; Z95.5 Presence of coronary angioplasty implant and graft; Z82.49 Family history of ischemic heart disease and other diseases of the circulatory system; I73.9 Peripheral vascular disease, unspecified; Z79.02 Long term (current) use of antithrombotics/antiplatelets; Z79.82 Long term (current) use of aspirin; Z79.51 Long term (current) use of inhaled steroids; Z79.899 Other long term (current) drug therapy
CPT/HCPCS: 85347; 92960; 93662; 93653; C1769 ×2; C1894; C1730 ×2; C1759; C1893; C1732; J2250; J2720; J1644 ×3; J2710; J2001; J3010; J2370; J0330; J2704; J0690; 93656

== ENCOUNTER → 2018-08-30 | Outpatient (CLI) | payer MEDICARE, OTHER ==
[2018-08-30 22:18] LABS: Anion Gap 7.4 mmol/L (4.00-12.00); Calcium 9.1 mg/dL (8.7-10.3); Carbon Dioxide 27.6 mmol/L (21.6-31.8); Magnesium 1.9 mg/dL (1.5-2.4); Potassium 4.2 mmol/L (3.5-5.5)
== END | disposition home or self-care (01) ==
LOC: LABWHC1 11:25
PROVIDERS: ATTEND Internal Medicine
DX: E87.8 Other disorders of electrolyte and fluid balance, not elsewhere classified (principal)
CPT/HCPCS: 36415; 80048; 83735

== ENCOUNTER → 2018-09-01 | Outpatient (CLI) | payer MEDICARE, OTHER ==
--- NOTE | 2018-09-01 14:19 | CT ---
EXAMINATION TYPE: CT brain wo con DATE OF EXAM: 09/01/2018 COMPARISON: 10/04/2015 HISTORY: Left frontal injury 2 days ago. Subsequent head pain. CT DLP: 1081.6 mGycm Automated exposure control for dose reduction was used. FINDINGS: There is a left frontal scalp hematoma measuring 7 mm in greatest thickness. There is no calvarial fr acture nor intracranial hemorrhage seen deep to this scalp injury. There is symmetric prominence of t he ventricular system and peripheral sulci compatible with age-related volume loss. There is no suspi cious extra-axial fluid collection seen. There is no evidence of acute intracranial hemorrhage, midli ne shift or mass effect. Patchy areas of hypoattenuation are seen within the subcortical and perivent ricular white matter, most commonly on the basis of chronic microangiopathy. Calvarium is intact. The paranasal sinuses demonstrate pansinusitis with moderate to severe mucosal t hickening in the ethmoid sinuses extending into the nasopharynx, mild mucosal thickening within the m axillary sinuses, scant mucosal thickening in the sphenoid sinuses and mild mucosal thickening in the frontal sinuses. The mastoid air cells are well aerated on the left with partial opacification on th e right. IMPRESSION: 1. LEFT FRONTAL 7 MM SCALP HEMATOMA. NO EVIDENCE OF INTRACRANIAL HEMORRHAGE OR MIDLINE SHIFT. NO UNDE RLYING CALVARIAL FRACTURE. 2. CEREBRAL ATROPHY, NONSPECIFIC WHITE MATTER CHANGE, AND MODERATE PANSINUSITIS.
== END ==
LOC: RADCTMAIN 13:30
PROVIDERS: ATTEND Internal Medicine
DX: S00.03XA Contusion of scalp, initial encounter (principal); G31.9 Degenerative disease of nervous system, unspecified; R90.89 Other abnormal findings on diagnostic imaging of central nervous system
CPT/HCPCS: 70450

== ENCOUNTER → 2019-01-26 | Outpatient (CLI) | payer MEDICARE, OTHER ==
[2019-01-26 14:44] LABS: HCT 41.8 % (39.0-53.0); HGB 13.7 gm/dL (13.0-17.5); MCH 32.5 pg (25.0-35.0); MCHC 32.9 g/dL (31.0-37.0); MCV 98.7 fL (80.0-100.0); Mean Platelet Volume 7.1; Platelet Count 216 k/uL (150-450); RBC 4.23 m/uL (4.30-5.90); RDW 13.2 % (11.5-15.5); WBC 6.7 k/uL (3.8-10.6)
[2019-01-26 14:52] LABS: Calcium 9.3 mg/dL (8.4-10.2); Potassium 4.3 mmol/L (3.5-5.1); Total Bilirubin 0.7 mg/dL (0.2-1.3); Total Protein 6.5 g/dL (6.3-8.2)
[2019-01-26 14:56] LABS: Appearance,Urine Clear (Clear); Bilirubin,Urine Negative (Negative); Blood,Urine Negative (Negative); Color,Urine Light Yellow; Glucose,Urine (UA) Negative (Negative); INR 1.2 (<1.2); Ketones,Urine Negative (Negative); Leukocyte Esterase,Urine Negative (Negative); Nitrite,Urine Negative (Negative); PH, Urine 6.5 (5.0-8.0); Partial Thromboplastin Time 32.1 sec (22.0-30.0); Protein,Urine Negative (Negative); Prothrombin Time 12.3 sec (9.0-12.0); Specific Gravity,Urine 1.008 (1.001-1.035); Urobilinogen,Urine <2.0 mg/dL (<2.0)
== END | disposition home or self-care (01) ==
LOC: LABPAT 13:18
PROVIDERS: ATTEND Orthopaedic Surgery
DX: Z01.810 Encounter for preprocedural cardiovascular examination (principal); Z01.812 Encounter for preprocedural laboratory examination; Z79.01 Long term (current) use of anticoagulants
CPT/HCPCS: 36415; 80053; 81003; 85027; 85610; 85730; 87070

== ENCOUNTER 2019-02-20 15:15 | Inpatient (IN) | payer MEDICARE, OTHER ==
[2019-02-10 08:36] VITALS: BMI 28.7
[~2019-02-20 15:15] MED LIST changes: +ACETAMINOPHEN TAB 500 MG TAB PO ONE; +MELOXICAM 7.5 MG TAB PO ONE; -MIDAZOLAM 2 MG/2 ML VIAL IV PRN; +ROPIVACAINE 246.25 MG, EPINEPHrine 0.5 MG, KETOROLAC 30 MG, cloNIDine HCL/PF 80 MCG, WA... MISCELLANE STA; -SODIUM CHLORIDE 0.9% 1,000 ML IV SCH; +TRANEXAMIC ACID 1,000 MG in SODIUM CHLORIDE 0.9% 100 ML IVPB ONE; +ceFAZolin IN SWFI 2 GM/20 ML SYRINGE IVP ONE; -fentaNYL (PF) 50 MCG/ML 2 ML AMP IV PRN
[2019-02-20] MEDS ORDERED: NA PHOS,M-B/NA PHOS,DI-BA 133 ML ENEMA RECTAL PRN (15:16)
[2019-02-20] MEDS ORDERED: ONDANSETRON 4 MG/2 ML VIAL IVP PRN (15:16)
[2019-02-20] MEDS ORDERED: HYDROcodone/APAP 5-325MG 1 EACH TAB PO PRN (15:16)
[2019-02-20] MEDS ORDERED: MAGNESIUM HYDROXIDE 2,400 MG/10 ML CUP PO PRN (15:16)
[2019-02-20] MEDS ORDERED: BISACODYL 10 MG SUPP RECTAL PRN (15:16)
[2019-02-20] MEDS ORDERED: TEMAZEPAM 15 MG CAP PO PRN ×2 (15:16→22:00)
[2019-02-20] MEDS ORDERED: NALOXONE 0.4 MG/ML 1 ML VIAL IV PRN (15:16)
[2019-02-20] MEDS ORDERED: HYDROmorphone 0.5 MG/0.5 ML SYRINGE IVP PRN ×3 (15:16)
[2019-02-20] MEDS ORDERED: TRANEXAMIC ACID 1,000 MG/10 ML VIAL ONE (15:35)
[2019-02-20] MEDS ORDERED: MIDAZOLAM 2 MG/2 ML VIAL ONE (15:35)
[2019-02-20] MEDS ORDERED: PROPOFOL 10 MG/ML 20 ML VIAL IV ONE (15:35)
[2019-02-20] MEDS ORDERED: fentaNYL (PF) 50 MCG/ML 2 ML AMP ONE (15:35)
[2019-02-20] MEDS ORDERED: SODIUM CHLORIDE 0.9% 100 ML BAG ONE (15:35)
[2019-02-20] MEDS ORDERED: ePHEDrine SULFATE/0.9% NACL/PF 50 MG/5 ML SYRINGE IV ONE (15:35)
[2019-02-20] MEDS ORDERED: LACTATED RINGERS 1,000 ML IV ONE (17:30)
[2019-02-20] MEDS ORDERED: ROPIVACAINE 1,100 MG, SODIUM CHLORIDE 0.9% 500 ML 330 ML MISCELLANE PRN ×2 (17:52)
--- NOTE | 2019-02-20 18:52 | XR ---
EXAMINATION TYPE: XR knee limited RT DATE OF EXAM: 02/20/2019 COMPARISON: NONE HISTORY: 79-year-old male evaluation for postoperative abnormality and alignment TECHNIQUE: 2 views FINDINGS: Images show placement of right total knee arthroplasty. 2 distal femoral and proximal tibial componen ts of the prosthesis are well seated without periprosthetic fracture. Alignment grossly anatomic. 2.2 cm loose body posteriorly. Scattered soft tissue air and anterior soft tissue swelling as well as in tra-articular air and joint effusion related to recent operation. IMPRESSION: Uncomplicated postoperative appearance right total knee arthroplasty. Retained 2.2 cm posterior loose body.
[2019-02-20] MEDS: LACTATED RINGERS 1,000 ML IV SCH (20:46)
[2019-02-20] MEDS ORDERED: ASPIRIN 81 MG PO SCH (21:00)
[2019-02-20] MEDS: SENNOSIDES-DOCUSATE SODIUM 1 EACH TAB PO SCH (21:40)
--- NOTE | 2019-02-20 22:26 | P.CONS ---
History of Present Illness - Reason for Consult Consult date: 02/20/19 (Postoperative consult) Resuming his medication, post right knee total arthroplasty, atrial fibrill - Chief Complaint Status post right total knee arthroplasty on 02/20/2019. - History of Present Illness //This is consult requested by Dr. Anaya orthopedic surgeon. Patient underwent right total knee arthroplasty for advanced degenerative osteoarthritis. Patient seen and evaluated today. Patient with the history: Coronary artery bypass, hyperlipidemia, gouty arthropathy, hypertension, with hypertensive heart disease, mild improvement of the ejection fraction, atrial fibrillation with controlled ventricular response, Chronic kidney disease stage III. Narco causing him confusion and disorientation and to be avoided. Probably have the pain not controlled by Tylenol gr 10 every 4-6 hour period Sparks trial of tramadol/Ultram to be used for pain. We'll continue home medication tomorrow. Question to the orthopedic: #1 in regard of the surgery and presence of atrial fibrillation, to avoid bleeding when he would like to start savaysa which is anticoagulant factor X A inhibitor was given by Dr. Li cardiology for the atrial fibrillation as well as when should be starting his aspirin and he was on 81 mg once daily as well. Patient status post right total knee arthroplasty, he had spinal anesthesia. No adverse effects no hypotension no nausea no vomiting no headache postoperative period . Past medical history #1 advanced arthritis of the joint status post right total knee arthroplasty. Chronic kidney disease stage III four-vessel bypass graft no recent angina. Obstructive sleep apnea and COPD. Pacemaker left infraclavicular. Review of system: Noncontributory. And stable. On exam temperature is 97.7 Fahrenheit oral. Pulse rate regular 67 with the atrial fibrillation. Respiratory rate 18/m nonlabored. Blood pressure currently 129/64 on the monitor postoperative initially in a.m. her blood pressure was 165/75. Currently is controlled. HEENT the head was normocephalic and atraumatic he had central baldness with boogie hair. Oropharynx he had dentures upper plate and lower partial. Normal nose and hearing aid. Neck was supple no JVD no thyromegaly no lymphadenopathy trachea midline. Chest: Clear to auscultation percussion, increased anteroposterior diameter,. Normal breath sounds. The heart irregular irregularity is with a pacemaker no evidence of congestive heart failure Abdomen soft positive bowel sounds no organ enlargement Extremities no edema. Pulses with the right total knee arthroplasty. Neurologically: Stable Psychiatry stable. Assessment: #1 status post elective right total knee arthroplasty by Dr. anaya on today 02/20/2019. #2 underlying history of chronic atrial fibrillation on anticoagulant however was held for the surgery. #3 vital signs stable. Plan check with the orthopedic in regard of the aspirin, Savysa the anticoagulation when will be started. In regard of the pain medication will be handled by the orthopedic however Narco can cause his M to have diffusion and become confused suggested medication is Toprol goal or ultra. Currently he is on Tylenol gr 10 and if he is tolerating it well there is no need for adding any medication. Thank you for letting me part of the care will follow. Past Medical History Past Medical History: Asthma, Coronary Artery Disease (CAD), Cancer, GE RD/Reflux, Hearing Disorder / Deafness, Hyperlipidemia, Hypertension, Memory Impairment, Myocardial Infarction (CA), Osteoarthritis (OA), Sleep Apnea/CPAP/BIPAP Additional Past Medical History / Comment(s): See Dr Khoury's H&P. Past hx of CHEST PAIN W/ EXERTION, SKIN CANCER. Asthma resolved. CPAP use. Age related memory impairment. Hard of hearing. Last Myocardial Infarction Date:: 2007 History of Any Multi-Drug Resistant Organisms: None Reported Past Surgical History: Adenoidectomy, Cardiac Ablation, Heart Catheterization With Stent, Hernia Repair, Pacemaker, Tonsillectomy Additional Past Surgical History / Comment(s): Quad vessel CABG 2007, UMBILICAL HERNIA X 2, blepheroplasty, total 4 cardaic stents, skin tags removed, colonoscopy/polys removed were benign, hemorroidectomy, rt knee arthroscopy. Cardiac Ablation X2. 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 Past Psychological History: No Psychological Hx Reported Smoking Status: Never smoker Past Alcohol Use History: None Reported Past Drug Use History: None Reported - Past Family History Father Family Medical History: Myocardial Infarction (CA) Mother Family Medical History: Cancer Additional Family Medical History / Comment(s): SKIN Medications and Allergies Home Medications Medication Instructions Recorded Confirmed Type Famotidine 40 mg PO HS 03/26/14 02/20/19 History Montelukast [Singulair] 10 mg PO QAM 03/26/14 02/20/19 History Atorvastatin [Lipitor] 40 mg PO HS 04/24/14 02/20/19 History Allopurinol [Zyloprim] 100 mg PO HS 08/25/17 02/20/19 History Carvedilol [Coreg] 9.37 mg PO BID 08/25/17 02/20/19 History Diclofenac Sodium [Voltaren] 50 mg PO BID 08/25/17 02/20/19 History Edoxaban Tosylate [Savaysa] 60 mg PO QAM 08/25/17 02/20/19 History Losartan Potassium 150 mg PO QAM 08/25/17 02/20/19 History Tamsulosin [Flomax] 0.4 mg PO HS 08/25/17 02/20/19 History amLODIPine [Norvasc] 10 mg PO HS 08/25/17 02/20/19 History Aspirin 81 mg PO QAM 01/31/18 02/20/19 History Cholecalciferol (Vitamin D3) 2,000 mg PO DAILY 02/10/19 02/20/19 History [Vitamin D3] Furosemide [Lasix] 20 mg PO DAILY 02/10/19 02/20/19 History Aspirin [Adult Low Dose Aspirin EC] 81 mg PO DAILY #1 tablet. 02/20/19 Rx HYDROcodone/APAP 5-325MG [[place] 1 - 2 each PO Q4-6H PRN #50 tab 02/20/19 Rx 5-325] Sennosides-Docusate Sodium 1 tab PO BID #60 tablet 02/20/19 Rx [Senokot-S] Allergies Allergy/AdvReac Type Severity Reaction Status Date / Time No Known Allergies Allergy Verified 02/20/19 14:03 Physical Exam Vitals: Vital Signs Temp Pulse Pulse Resp BP Pulse Ox 02/20/19 21:10 97.7 F 71 18 165/75 95 02/20/19 18:59 62 16 152/77 95 02/20/19 18:40 59 L 16 158/79 98 02/20/19 18:25 76 18 159/77 98 02/20/19 18:10 97 F L 65 16 132/80 95 02/20/19 13:46 97.2 F L 67 16 164/80 97 Intake and Output 02/20/19 02/20/19 02/20/19 06:59 14:59 22:59 Intake Total 300 1200 Output Total 50 Balance 300 1150 Intake: IV 300 1200 Output: Estimated Blood Loss 50 Other: # Voids 1
[2019-02-20] MEDS: ceFAZolin IN SWFI 2 GM/20 ML SYRINGE IVP SCH (22:34)
[2019-02-20] MEDS ORDERED: ACETAMINOPHEN TAB 325 MG TAB PO PRN (22:34)
[2019-02-21] MEDS: LACTATED RINGERS 1,000 ML IV SCH ×3 (00:46→22:45)
[2019-02-21] MEDS: ceFAZolin IN SWFI 2 GM/20 ML SYRINGE IVP SCH (02:54)
[2019-02-21] MEDS: ASPIRIN 81 MG PO SCH ×2 (07:33→09:42)
--- NOTE | 2019-02-21 08:54 | P.PN ---
Subjective Progress Note Date: 02/21/19 Principal diagnosis: Status post right total knee arthroplasty This is a 79 year-old male post right total knee arthroplasty. This is post-op day 1. The patient was evaluated at the bedside today. The patient denies nausea, vomiting, abdominal pain, shortness of breath, and chest pain this morning. He states his pain is very well controlled at this time. The patient has not been up with physical therapy but has ambulated to the bathroom numerous times.. Objective - Vital Signs Vital signs: Vital Signs Temp 97.4 F L 02/21/19 07:00 Pulse 67 02/21/19 07:00 Resp 16 02/21/19 07:00 BP 148/74 02/21/19 07:00 Pulse Ox 95 02/21/19 07:00 Intake & Output 02/20/19 02/21/19 02/21/19 18:59 06:59 18:59 Intake Total 1400 100 Output Total 50 Balance 1350 100 Intake: IV 1400 100 Output: Estimated Blood Loss 50 Other: # Voids 2 - Exam The patient does not appear in acute distress. Alert and orientated x3. Dressing is clean dry and intact. Incision appears fine with no erythema or active drainage. Calf is soft and nontender. Good foot and ankle motion without difficulty. Sensation and circulatory status is intact. Assessment and Plan (1) Osteoarthritis of right knee Current Visit: Yes Status: Acute Code(s): M17.11 - UNILATERAL PRIMARY OSTEOARTHRITIS, RIGHT KNEE SNOMED Code(s): 770687654187695 (2) Status post total right knee replacement Current Visit: Yes Status: Acute Code(s): Z96.651 - PRESENCE OF RIGHT ARTIFICIAL KNEE JOINT SNOMED Code(s): 7053635156541 (3) Atrial flutter Current Visit: No Status: Acute Code(s): I48.92 - UNSPECIFIED ATRIAL FLUTTER SNOMED Code(s): 3706742 (4) CAD (coronary artery disease) Current Visit: No Status: Acute Code(s): I25.10 - ATHSCL HEART DISEASE OF [place] CORONARY ARTERY W/O ANG PCTRS SNOMED Code(s): 99936483 (5) HTN (hypertension) Current Visit: No Status: Acute Code(s): I10 - ESSENTIAL (PRIMARY) HYPERTENSION SNOMED Code(s): 95524300 (6) Hx of CABG Current Visit: No Status: Acute Code(s): Z95.1 - PRESENCE OF AORTOCORONARY BYPASS GRAFT SNOMED Code(s): 549082461 (7) Hyperlipemia Current Visit: No Status: Acute Code(s): E78.5 - HYPERLIPIDEMIA, UNSPECIFIED SNOMED Code(s): 82054749 Plan: 1. Continue pain control 2. Anticoagulation per internal medicine 3. Start physical therapy and ambulation 4. Anticipate discharge home with homecare either later today or tomorrow, depending on how he progresses with physical therapy this morning.
[2019-02-21 09:38] LABS: Basophils % (A) 0 %; Eosinophils % (A) 0 %; HCT 38.3 % (39.0-53.0); HGB 12.5 gm/dL (13.0-17.5); Lymphocytes # (A) 1.2 k/uL (1.0-4.8); Lymphocytes % (A) 6 %; MCH 31.6 pg (25.0-35.0); MCHC 32.6 g/dL (31.0-37.0); MCV 96.9 fL (80.0-100.0); Mean Platelet Volume 7.8; Monocytes # (A) 0.7 k/uL (0-1.0); Monocytes % (A) 4 %; Neutrophils # (A) 17.1 k/uL (1.3-7.7); Neutrophils % (A) 90 %; Platelet Count 183 k/uL (150-450); RBC 3.96 m/uL (4.30-5.90); RDW 13.9 % (11.5-15.5); WBC 19.1 k/uL (3.8-10.6)
[2019-02-21] MEDS: CARVEDILOL 6.25 MG TAB PO SCH ×2 (09:41→19:43)
[2019-02-21] MEDS: LOSARTAN 50 MG TAB PO SCH (09:42)
[2019-02-21] MEDS: CHOLECALCIFEROL 1,000 UNIT TAB PO SCH (09:42)
[2019-02-21] MEDS: MONTELUKAST 10 MG TAB PO SCH (09:42)
[2019-02-21] MEDS: FUROSEMIDE 20 MG TAB PO SCH (09:43)
--- NOTE | 2019-02-21 10:19 | P.PN ---
Progress Note - Text 02/21 648am 79 year old male s/p tkr by Dr Duggan. pt has an on-q pump for post op pain control with the solution running at 8 cc/hr with a vas of 2. continue present management
--- NOTE | 2019-02-21 10:49 | P.ANPRN ---
Procedure Note - Anesthesia - Nerve Block Performed Right Adductor Canal Infusion Time Out Performed: Yes Date of Procedure: 02/20/19 Procedure Start Time: 14:25 Procedure Stop Time: 14:32 Location of Patient Procedure: PreOp Indication: Acute Post-Operative Pain, Requested by physician Sedation Type: Sedate with meaningful contact maintained Preparation: Sterile Prep, Sterile Dressing Position: Supine Catheter: Indwelling Needle Types: Pajunk Needle Gauge: 21 Technique: Ultrasound (ropi .5% 30 cc plus dexamethasone 4 mg) Blood Aspirated: No Pain Paresthesia on Injection Noted: No Resistance on Injection: Normal Events: Uneventful and Well Tolerated
--- NOTE | 2019-02-21 13:06 | P.PN ---
Subjective Progress Note Date: 02/21/19 (Chronic atrial fibrillation) Principal diagnosis: Status post right total knee arthroplasty on 02/20/2019. COPD Coronary artery disease, status post bypass graft, Hyperlipidemia Hypertension controlled History of asthma. Leukocytosis secondary to stress with surgery. With the minimal anemia hemoglobin 12.5. Progress note date of service 02/21/2019. Patient seen and evaluated today. Patient had no complaint no pain at this time. Vital sign temperature 97.4 Fahrenheit orally. Pulse rate 67/m controlled atrial fibrillation. Respiratory rate 16/m nonlabored. Blood pressure 148/74 with a mean 98. His pulse ox is 95% on room air. Laboratory he had a CBC with differential this morning and ordered by the orthopedic his white count was 19.1 with the hemoglobin 12.5 and hematocrit 38.0 which is expected with any surgery however the blood loss was minimal. Clinical examination HEENT was negative he has central bolus and boogie hair. Oropharynx normal able to eat and swallow no difficulties. Nose and hearing no new deficit. Neck was supple no JVD no thyromegaly no lymphadenopathy trachea midline. His chest is clear to auscultation percussion and no wheezes nor rhonchi's. Heart PMI in the fifth intercostal space outside midclavicular line is underlying irregular irregularity is controlled atrial fibrillation. Abdomen soft positive bowel sounds no organ enlargement . Extremities no edema he has a dressing on the knee and right-sided left sided is normal no evidence of edema or calf tenderness with the squeezing the calf and pulses is intact 2+ bilaterally. Neurologically no lateralizing sign and able to ambulate with a walker. Psychiatry normal mood. Assessment Patient stable general condition with the continuation of the current medication. I did discuss with his nurse VANE jessa to restart hisSavysa space 60 mg daily when orthopedic surgeon cleared for that. Plan: Patient cleared for discharge today or tomorrow depending on the orthopedic surgeon. Continuation of the current medication at home with no change. Continuation anticoagulation with savysa anticoagulation factor X inhibitor 60 mg once a day as prescribed by Dr. Li cardiology for his chronic atrial fibrillation. Objective - Vital Signs Vital signs: Vital Signs Temp 97.4 F L 02/21/19 07:00 Pulse 67 02/21/19 08:50 Resp 16 02/21/19 08:50 BP 148/74 02/21/19 07:00 Pulse Ox 95 02/21/19 07:00 Intake & Output 02/20/19 02/21/19 02/21/19 18:59 06:59 18:59 Intake Total 1400 100 Output Total 50 Balance 1350 100 Intake: IV 1400 100 Output: Estimated Blood Loss 50 Other: # Voids 2 2 - Labs CBC & Chem 7: 02/21/19 09:18 Labs: Abnormal Lab Results - Last 24 Hours (Table) 02/21/19 Range/Units 09:18 WBC 19.1 H (3.8-10.6) k/uL RBC 3.96 L (4.30-5.90) m/uL Hgb 12.5 L (13.0-17.5) gm/dL Hct 38.3 L (39.0-53.0) % Neutrophils # 17.1 H (1.3-7.7) k/uL
[2019-02-21] MEDS: EDOXABAN TOSYLATE 60 MG TABLET PO SCH (16:45)
[2019-02-21] MEDS ORDERED: TAMSULOSIN 0.4 MG CAP.ER.24H PO SCH (21:00)
[2019-02-21] MEDS ORDERED: FAMOTIDINE 20 MG TAB PO SCH (21:00)
[2019-02-21] MEDS ORDERED: ATORVASTATIN 40 MG TAB PO SCH (21:00)
[2019-02-21] MEDS ORDERED: ALLOPURINOL 100 MG TAB PO SCH (21:00)
[2019-02-21] MEDS ORDERED: amLODIPine 10 MG TAB PO SCH (21:00)
[2019-02-21] MEDS: SENNOSIDES-DOCUSATE SODIUM 1 EACH TAB PO SCH (22:36)
[2019-02-22 04:36] VITALS: TEMP 98.2
[2019-02-22 07:27] VITALS: BP 150/81; PULSE 66; RESP 16
[2019-02-22] MEDS: CARVEDILOL 6.25 MG TAB PO SCH (09:01)
[2019-02-22] MEDS: LOSARTAN 50 MG TAB PO SCH (09:02)
[2019-02-22] MEDS: CHOLECALCIFEROL 1,000 UNIT TAB PO SCH (09:02)
[2019-02-22] MEDS: MONTELUKAST 10 MG TAB PO SCH (09:02)
[2019-02-22] MEDS: FUROSEMIDE 20 MG TAB PO SCH (09:03)
[2019-02-22] MEDS: EDOXABAN TOSYLATE 60 MG TABLET PO SCH (09:05)
--- NOTE | 2019-02-22 10:08 | P.DS ---
Providers Date of admission: 02/20/19 18:21 Expected date of discharge: 02/22/19 Attending physician: Aristeo Duggan Consults: 02/20/19 15:16 Consult Physician Routine Consulting Provider: Cole Gomez Reason/Comments: Medical management Do you want consulting provider notified?: Yes Primary care physician: Cole Gomez - Discharge Diagnosis(es) (1) Osteoarthritis of right knee Current Visit: Yes Status: Acute (2) Status post total right knee replacement Current Visit: Yes Status: Acute (3) Atrial flutter Current Visit: No Status: Acute (4) CAD (coronary artery disease) Current Visit: No Status: Acute (5) HTN (hypertension) Current Visit: No Status: Acute (6) Hx of CABG Current Visit: No Status: Acute (7) Hyperlipemia Current Visit: No Status: Acute Hospital Course: This is a 79-year-old male who was last seen with complaint of continued right knee pain. The patient has a known history of degenerative arthritis of the right knee and presents to discuss surgical options. After discussion and consideration the patient elects to proceed with total right knee arthroplasty. The patient is seen preoperatively by Dr. Gomez and cleared for surgery. The patient is admitted to [facility] for total right knee arthroplasty. The procedures performed without complication or sequelae. Patient is doing well postoperatively. He has history of atrial fibrillation which was stable throughout his hospital stay. He was placed back on his anticoagulant per primary care physician. Vital signs are stable at discharge. Labs are stable at discharge. the patient is ambulating well with walker with minimal assistance. The patient is discharged to home on postop day #2 pending medical clearance. Please see orders and refer to the med rec for accurate list of medications. Patient Condition at Discharge: Good Plan - Discharge Summary Discharge Rx Participant: Yes New Discharge Prescriptions: New Aspirin [Adult Low Dose Aspirin EC] 81 mg PO DAILY #1 tablet. HYDROcodone/APAP 5-325MG [[place] 5-325] 1 - 2 each PO Q4-6H PRN #50 tab PRN Reason: Pain Sennosides-Docusate Sodium [Senokot-S] 1 tab PO BID #60 tablet No Action Montelukast [Singulair] 10 mg PO QAM Famotidine 40 mg PO HS Atorvastatin [Lipitor] 40 mg PO HS amLODIPine [Norvasc] 10 mg PO HS Tamsulosin [Flomax] 0.4 mg PO HS Edoxaban Tosylate [Savaysa] 60 mg PO QAM Diclofenac Sodium [Voltaren] 50 mg PO BID Carvedilol [Coreg] 9.37 mg PO BID Allopurinol [Zyloprim] 100 mg PO HS Losartan Potassium 150 mg PO QAM Aspirin 81 mg PO QAM Furosemide [Lasix] 20 mg PO DAILY Cholecalciferol (Vitamin D3) [Vitamin D3] 2,000 mg PO DAILY Discharge Medication List Famotidine 40 mg PO HS 03/26/14 [History] Montelukast [Singulair] 10 mg PO QAM 03/26/14 [History] Atorvastatin [Lipitor] 40 mg PO HS 04/24/14 [History] Allopurinol [Zyloprim] 100 mg PO HS 08/25/17 [History] Carvedilol [Coreg] 9.37 mg PO BID 08/25/17 [History] Diclofenac Sodium [Voltaren] 50 mg PO BID 08/25/17 [History] Edoxaban Tosylate [Savaysa] 60 mg PO QAM 08/25/17 [History] Losartan Potassium 150 mg PO QAM 08/25/17 [History] Tamsulosin [Flomax] 0.4 mg PO HS 08/25/17 [History] amLODIPine [Norvasc] 10 mg PO HS 08/25/17 [History] Aspirin 81 mg PO QAM 01/31/18 [History] Cholecalciferol (Vitamin D3) [Vitamin D3] 2,000 mg PO DAILY 02/10/19 [History] Furosemide [Lasix] 20 mg PO DAILY 02/10/19 [History] Aspirin [Adult Low Dose Aspirin EC] 81 mg PO DAILY #1 tablet. 02/20/19 [Rx] HYDROcodone/APAP 5-325MG [[place] 5-325] 1 - 2 each PO Q4-6H PRN #50 tab 02/20/19 [Rx] Sennosides-Docusate Sodium [Senokot-S] 1 tab PO BID #60 tablet 02/20/19 [Rx] Follow up Appointment(s)/Referral(s): Amanda Chahal, MARIS [PHYSICIAN PATENT ENGINEER] - 03/07/19 10:00 am (With [facility], [NON-STAFF] - Cole Gomez MD [Primary Care Provider] - 1 Week Activity/Diet/Wound Care/Special Instructions: May bear wt as tolerated w walker. May shower if no drainage from incision. Medical to manage anticoagulation. Discharge Disposition: HOME WITH HOME HEALTH SERVICES
--- NOTE | 2019-03-15 12:57 | P.OP ---
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 ANESTHESIA: Spinal ESTIMATED BLOOD LOSS: 100 ml. ALIGNER BARREL AND RECEIVER: Amanda Chahal PA-C (assistance with: patient positioning, retraction, exposure, hemostasis, leg positioning, implantation, irrigation, closure, dressing) COMPLICATIONS: None apparent. COMPONENTS IMPLANTED: Journey II total knee system from [employer] and [employer] INDICATIONS: Mr. Muniz is a 79-year-old male with a history of right knee osteoarthritis. The patient's knee is end-stage, and conservative management has failed. The operation of knee replacement has been discussed at length in the office, as well as potential risks and complications. These are inclusive of, but not limited to: bleeding, infection, scarring, discomfort, blood vessel and nerve damage, need for further surgery, failure to relieve symptoms, persistence, recurrence, or worsening of problems, loosening, dislocation, wear, blood clot, pulmonary embolism, , gait dysfunction, stiffness, and other risks as discussed in the office. The patient elects to proceed and the consent form has been signed. PROCEDURE: The patient was taken to the operating room and positioned on the operating room table in the supine position. Anesthesia was initiated. Care was taken to make sure that all pressure points were adequately padded. The operative lower extremity was prepped and draped in the usual aseptic fashion using ChloraPrep. Ioban drape was used for the case and the patient received intravenous antibiotics within one hour of the incision. A pneumotourniquet and leg stallworth were used for the case. The limb was exsanguinated with an Esmarch bandage and the tourniquet was inflated to 350 mmHg. Time-out was called confirming the patient's identity, side, procedure and administration of antibiotics and tranexamic acid. The incision was then created midline directly over the knee, carried down through skin and into the subcutaneous tissues and down to fascia. Full thickness subcutaneous medial flap was developed. Medial parapatellar arthrotomy was performed and the interior of the knee was inspected. There was end-stage osteoarthritis of the knee with a mild to moderate genu valgum type deformity. The fat pad was excised and proximal medial release on the tibia was completed using meticulous dissection and a curved osteotome. The anterior cruciate ligament was taken down. Note was made of significant degenerative appearance of the cruciate ligaments. The exposure was excellent. The knee was flexed 90 degrees and the patella was everted. A spot was chosen on the femur approximately 1 cm anterior to the posterior cruciate ligament insertion and an intramedullary hole was created within the femur. The intramedullary guide was set to 5 degrees of valgus. The distal cutting block was attached and pinned into position. An appropriate amount of distal femoral resection was set. The oscillating saw was then used to make the distal femoral cut. This cut was confirmed to be flat with the flat end of an osteotome. The retractors were placed around the tibia and the tibial surface was addressed. The angle and depth of resection was adjusted using an extramedullary cutting guide. The guide had a built-in 3 degree posterior slope cut. Once the cutting guide was adjusted appropriately and in line with the axis of the tibia and confirmed to be in good position in relation to the second metatarsal and transmalleolar axis, the tibial cut was then created with protection of the posterior neurovascular structures and the collateral ligaments. The tibial cut surface was removed and sized. Femoral sizing was then accomplished using posterior referencing. Care was taken to analyze the posterior condyles for signs of deficiency or severe wear, and adjustments to the guide were made, as appropriate. 3 degree external rotation pins were placed. The cutting jig for the femur was applied to these pins. The planned cuts were further analyzed prior to performing them with the oscillating saw. No femoral notching was produced. Bone fragments were removed and the cut surfaces were finished, as necessary, with a reciprocating saw. Spacer block technique was then used to confirm that the flexion and extension gaps were equal. Soft tissue releases and adjustment of the tibial and/or femoral cuts were made, as necessary, until the gaps were equal. This included release of the posterior cruciate ligament, which was excessively tight in this patient. The femur was then further finished for a posterior cruciate ligament substituting component. Patellar resurfacing was performed using a reamer. The size of the required patellar component was estimated and the patellar surface was then reamed down to a residual thickness which would recreate the [place] thickness with the component. The exact placement of the patellar component was adjusted for pos ition based on preoperative x-rays and intraoperative findings. Prior to placing trial components, anesthetic solution consisting of ropivicaine with epinephrine, ketorolac, and clonidine was injected carefully and methodically in a grid pattern using aspiration technique into the soft tissue around the knee circumferentially, starting with the deeper tissues first and progressing to fascia, and then finally the skin/subcutaneous tissue. Particular care was taken when injecting the posterior capsule. The trial components were inserted. The tibial tray was allowed to self center and the patella was noted to track very well. The position of the tibial component was marked and the tibia was then finished for a stemmed tibial component. Cement was mixed on the back table and applied to the final components. Trial components were removed and the cut surfaces of the bone were pulse lavaged thoroughly and dried. Cement was then applied to the tibial surface and pressurized into the surface using finger pressurization technique. The tibial component was then applied and excess cement was removed after it was impacted securely and noted to be flush with the cut surface. In similar fashion, the cement was applied to the cut femoral surface, pressurized in using finger pressurization and the component was impacted into place. Excess cement was removed. The polyethylene spacer was then implanted and locked into position. The patellar component was then applied in similar technique and a patellar clamp was used to hold the patella in place as the cement hardened. Once the cement had fully hardened, the knee was reinspected. Any other cement extrusion was removed and final kinematic testing showed range of motion from 0 to 130 degrees with excellent stability, both medially and laterally and appropriate alignment of the leg. Patellar tracking was excellent. The knee was then thoroughly pulse lavaged with normal saline. The tourniquet was deflated and hemostasis was obtained with electrocautery and IV tranexamic acid, 1 g given at the start of the operation and 1 g at the start of closure. Closure was with #2 Ethibond in the fascia/capsule and supplemented with #2 Q uill, 2-0 Vicryl suture was used for the subcutaneous tissues and 3-0 Quill for the skin. Dermabond/Steri-Strips were then applied. A lightly compressive dressing was applied using Webril and an Luciano wrap. The patient was then transferred to stretcher and taken to the recovery room in stable condition. Sponge and needle counts were correct.
== END 2019-02-22 11:17 | disposition home health service (06) | DRG 470 ==
LOC: 4SSUR 18:21
PROVIDERS: ADMIT Orthopaedic Surgery; ATTEND Orthopaedic Surgery
PROC: 0SRC0J9 Replacement of Right Knee Joint with Synthetic Substitute, Cemented, Open Approach (ICD-10-PCS; principal; 2019-02-20 15:15)
DX: M17.11 Unilateral primary osteoarthritis, right knee (principal); I48.92 Unspecified atrial flutter; D72.829 Elevated white blood cell count, unspecified; E78.5 Hyperlipidemia, unspecified; G47.33 Obstructive sleep apnea (adult) (pediatric); Z99.89 Dependence on other enabling machines and devices; H91.90 Unspecified hearing loss, unspecified ear; I13.10 Hypertensive heart and chronic kidney disease without heart failure, with stage 1 through stage 4 chronic kidney disease, or unspecified chronic kidney disease; I25.10 Atherosclerotic heart disease of native coronary artery without angina pectoris; I25.2 Old myocardial infarction; I48.2 Chronic atrial fibrillation; J44.9 Chronic obstructive pulmonary disease, unspecified; K21.9 Gastro-esophageal reflux disease without esophagitis; N18.3 Chronic kidney disease, stage 3 (moderate); Z79.01 Long term (current) use of anticoagulants; Z79.82 Long term (current) use of aspirin; Z79.899 Other long term (current) drug therapy; Z82.49 Family history of ischemic heart disease and other diseases of the circulatory system; Z85.828 Personal history of other malignant neoplasm of skin; Z95.1 Presence of aortocoronary bypass graft; Z86.010 Personal history of colon polyps; Z95.5 Presence of coronary angioplasty implant and graft; M10.9 Gout, unspecified; M21.069 Valgus deformity, not elsewhere classified, unspecified knee
CPT/HCPCS: 85025; 88305; 88311

== ENCOUNTER → 2019-03-02 | Outpatient (CLI) | payer MEDICARE, OTHER ==
--- NOTE | 2019-03-02 10:15 | US ---
EXAMINATION TYPE: US venous doppler duplex LE RT DATE OF EXAM: 03/02/2019 9:49 AM COMPARISON: NONE CLINICAL HISTORY: I80.9 PHLEBITIS AND THROMBOPHLEBITIS. Pt states right leg pain and swelling s/p rig ht total knee SIDE PERFORMED: Right TECHNIQUE: The lower extremity deep venous system is examined utilizing real time linear array sonog rashad with graded compression, doppler sonography and color-flow sonography. VESSELS IMAGED: External Iliac Vein (EIV) Common Femoral Vein Deep Femoral Vein Greater Saphenous Vein * Femoral Vein Popliteal Vein Small Saphenous Vein * Proximal Calf Veins (* superficial vessels) Right Leg: Negative for DVT Results called to Maegan at Dr's office at time of exam Grayscale, color doppler, spectral doppler imaging performed of the deep veins of the right lower ext remity. There is normal flow, compressibility, vascular waveforms. [id number] subcutaneous ed yoon noted towards the end of study. IMPRESSION: No Ultrasound of acute DVT in the right lower extremity.
== END | disposition home or self-care (01) ==
LOC: RADUSWWP 09:32
PROVIDERS: ATTEND Orthopaedic Surgery
DX: I80.9 Phlebitis and thrombophlebitis of unspecified site (principal)

== ENCOUNTER → 2019-04-26 | Outpatient (CLI) | payer MEDICARE, OTHER ==
[2019-04-26 09:52] LABS: Basophils # (A) 0.1 k/uL (0-0.2); Basophils % (A) 1 %; Eosinophils # (A) 0.6 k/uL (0-0.7); Eosinophils % (A) 8 %; HCT 41.1 % (39.0-53.0); HGB 13.3 gm/dL (13.0-17.5); Lymphocytes # (A) 1.5 k/uL (1.0-4.8); Lymphocytes % (A) 21 %; MCH 31.9 pg (25.0-35.0); MCHC 32.3 g/dL (31.0-37.0); MCV 98.8 fL (80.0-100.0); Mean Platelet Volume 6.9; Monocytes # (A) 0.3 k/uL (0-1.0); Monocytes % (A) 5 %; Neutrophils # (A) 4.7 k/uL (1.3-7.7); Neutrophils % (A) 65 %; Platelet Count 198 k/uL (150-450); RBC 4.16 m/uL (4.30-5.90); RDW 13.6 % (11.5-15.5); WBC 7.3 k/uL (3.8-10.6)
[2019-04-26 10:48] LABS: Erythrocyte Sedimentation Rate 4 mm/hr (0-15)
[2019-04-26 17:11] LABS: ALT 20 U/L (10-49); AST 24 U/L (14-35); Albumin/Globulin Ratio 2.21 (1.60-3.17); Alkaline Phosphatase 86 U/L (41-126); BUN/Creat Ratio 24.29 Ratio (12.00-20.00); C Reactive Protein <0.4 mg/dL (0.0-0.8); Calcium 9.4 mg/dL (8.7-10.3); Carbon Dioxide 26.5 mmol/L (21.6-31.8); Chloride 110 mmol/L (96-109); Chol/HDL Ratio 2.53; Cholesterol 96 mg/dL (0-200); Creatine Kinase 52 U/L (35-257); Globulin 1.9 g/dL (1.6-3.3); Glucose 94 mg/dL (70-110); Magnesium 2.1 mg/dL (1.5-2.4); Phosphorus 3.2 mg/dL (2.4-5.1); Potassium 4.7 mmol/L (3.5-5.5); Sodium 144 mmol/L (135-145); Total Bilirubin 0.6 mg/dL (0.3-1.2); Total Protein 6.1 g/dL (6.2-8.2); Triglycerides <50.0 mg/dL (0.0-149.0); Uric Acid 6.3 mg/dL (3.7-8.7); VLDL Calculation 9.98 mg/dL (5.00-40.00)
== END ==
LOC: LABWHC1 08:30
PROVIDERS: ATTEND Internal Medicine
DX: N40.0 Benign prostatic hyperplasia without lower urinary tract symptoms (principal); E78.5 Hyperlipidemia, unspecified; E55.9 Vitamin D deficiency, unspecified; N18.3 Chronic kidney disease, stage 3 (moderate); I12.9 Hypertensive chronic kidney disease with stage 1 through stage 4 chronic kidney disease, or unspecified chronic kidney disease
CPT/HCPCS: 36415; 80053; 80061; 82306; 82550; 83735; 84100; 84153; 84443; 84550; 85025; 85652; 86140

== ENCOUNTER → 2019-04-27 | Outpatient (CLI) | payer MEDICARE, OTHER | END | disposition home or self-care (01) | LOC: LABWHC1 09:00 | PROVIDERS: ATTEND Internal Medicine | DX: I13.10 Hypertensive heart and chronic kidney disease without heart failure, with stage 1 through stage 4 chronic kidney disease, or unspecified chronic kidney disease (principal); N18.3 Chronic kidney disease, stage 3 (moderate); E78.5 Hyperlipidemia, unspecified; N40.0 Benign prostatic hyperplasia without lower urinary tract symptoms; E55.9 Vitamin D deficiency, unspecified | CPT/HCPCS: 36415; 82272 ==

== ENCOUNTER → 2019-05-25 | Outpatient (CLI) | payer MEDICARE, OTHER ==
--- NOTE | 2019-05-26 07:13 | CT ---
EXAMINATION TYPE: CT facial bones w con DATE OF EXAM: 05/25/2019 COMPARISON: CT brain September 01, 2018. MRI brain October 21, 2015 HISTORY: Right nasal mass, difficulty breathing. Chronic sinusitis. CT DLP: 630.3 mGycm Automated exposure control for dose reduction was used. CONTRAST: CT scan of the facial bones is performed with IV Contrast, patient injected with 80 mL of Isovue 300. TECHNIQUE: CT scan of the facial bones is performed with IV contrast, axial images are obtained, redd nal reformatted images are also reviewed. FINDINGS: Mild to moderate mucosal thickening in the inferior aspect of both maxillary sinuses remain s present. There is moderate to severe mucosal thickening throughout the ethmoid sinuses redemonstrat ed more prominent anteriorly. Additional areas of central opacification could reflect significant muc osal thickening or trapped fluid. Mild mucosal thickening involving the inferior frontal sinuses. Sph enoid sinuses are clear on current study. The ostiomeatal complex is occluded bilaterally on the cor onal images. Visualized portion of mastoid air cells show no abnormal opacification. The globes are intact bilate rally. Nasal regions show no obvious mass or bony destruction. Nasal septum remains deviated to the left of midline unchanged from older studies from 2016. No suspicious enhancement identified. Visualized portion of brain parenchyma shows moderate diffuse c erebral atrophy over the bilateral frontal lobes. IMPRESSION: Chronic paranasal sinus disease redemonstrated. Cannot exclude some acute ethmoid sinus disease. No obvious suspicious nasal mass.
== END | disposition home or self-care (01) ==
LOC: RADCTMAIN 15:40
PROVIDERS: ATTEND Otolaryngology
DX: J32.9 Chronic sinusitis, unspecified (principal); R22.1 Localized swelling, mass and lump, neck
CPT/HCPCS: 82565; 84520; 70487; 36415; Q9967

== ENCOUNTER → 2019-08-04 | Outpatient (CLI) | payer MEDICARE, OTHER ==
--- NOTE | 2019-08-04 12:25 | XR ---
EXAMINATION TYPE: XR shoulder complete LT DATE OF EXAM: 08/04/2019 CLINICAL HISTORY: pain COMPARISON: NONE TECHNIQUE: Three views of the left shoulder are obtained. FINDINGS: There is no acute fracture/dislocation evident. The acromioclavicular and glenohumeral musa int spaces appear moderately narrowed. Spur formation is noted about the humeral head. Subacromial sp urring noted as well. Correlate for underlying impingement.. The visualized ribs are intact and unre markable. IMPRESSION: 1. There is no acute fracture or dislocation. ICD 10 NO FRACTURE, INITIAL EVALUATION
--- NOTE | 2019-08-04 12:27 | XR ---
Cervical spine HISTORY: Osteoarthritis, pain in left shoulder for 2 months 5 views of the cervical spine There is multilevel facet arthropathy. Patient is post median sternotomy, leads are present along the left subclavian vein. Lung apices are unremarkable. Chronic ossification suspected in the distribution of the carotid arteries. There is some left-sided foraminal encroachment at C3-4, C4-5, C6-7. There is multilevel spondylosis. Cervical vertebral bodies show preserved height and alignment. There is loss of bone mineralization. Multilevel spondylosis is present. Some loss of disc height C6-7. C7-T1 not included. IMPRESSION: Degenerative disc disease, facet arthropathy and osteopenia. Limitation as described.
== END | disposition home or self-care (01) ==
LOC: LABWHC1 11:22
PROVIDERS: ATTEND Internal Medicine
DX: M50.30 Other cervical disc degeneration, unspecified cervical region (principal); M46.92 Unspecified inflammatory spondylopathy, cervical region; M85.80 Other specified disorders of bone density and structure, unspecified site; M13.812 Other specified arthritis, left shoulder; M81.0 Age-related osteoporosis without current pathological fracture
CPT/HCPCS: 72050

== ENCOUNTER → 2021-01-06 | Outpatient (CLI) | payer MEDICARE, OTHER ==
[2021-01-06 14:44] LABS: African American GFR (CKD) 50.2 (60.0-200.0); Anion Gap 3.7 mmol/L (4.00-12.00); Calcium 9.1 mg/dL (8.7-10.3); Carbon Dioxide 26.3 mmol/L (21.6-31.8); Magnesium 2.2 mg/dL (1.5-2.4); Non-African American GFR(CKD) 43.3 (60.0-200.0)
== END | disposition home or self-care (01) ==
LOC: LABWHC1 09:28
PROVIDERS: ATTEND Internal Medicine
DX: E87.8 Other disorders of electrolyte and fluid balance, not elsewhere classified (principal)
CPT/HCPCS: 36415; 80048; 83735

== ENCOUNTER → 2021-03-10 | Outpatient (CLI) | payer MEDICARE, OTHER ==
[2021-03-10 18:39] LABS: Basophils # (A) 0.02 X 10*3/uL (0.00-0.10); Basophils % (A) 0.1 %; Eosinophils # (A) 0.01 X 10*3/uL (0.04-0.35); Eosinophils % (A) 0.1 %; HCT 40.9 % (39.6-50.0); HGB 13.5 g/dL (13.0-17.0); Lymphocytes # (A) 1.21 X 10*3/uL (0.90-5.00); Lymphocytes % (A) 8.4 %; MCH 33.2 pg (27.0-32.0); MCV 100.5 fL (80.0-97.0); Mean Platelet Volume 10.9 fL (9.5-12.2); Monocytes # (A) 1.28 X 10*3/uL (0.20-1.00); Monocytes % (A) 8.9 %; Neutrophils # (A) 11.86 X 10*3/uL (1.80-7.70); Neutrophils % (A) 82.2 %; Platelet Count 175 X 10*3/uL (140-440); RBC 4.07 X 10*6/uL (4.40-5.60); RDW 13.4 % (11.5-14.5); WBC 14.43 X 10*3/uL (4.50-10.00)
[2021-03-10 18:49] LABS: African American GFR (CKD) 49.9 (60.0-200.0); Anion Gap 8.2 mmol/L (4.00-12.00); BUN/Creat Ratio 21.33 Ratio (12.00-20.00); Calcium 9.2 mg/dL (8.7-10.3); Carbon Dioxide 27.8 mmol/L (21.6-31.8); Potassium 3.5 mmol/L (3.5-5.5); Uric Acid 6.4 mg/dL (3.7-8.7)
== END | disposition home or self-care (01) ==
LOC: LABWHC1 11:39
PROVIDERS: ATTEND Internal Medicine
DX: M10.9 Gout, unspecified (principal)
CPT/HCPCS: 36415; 80048; 84550; 85025

== ENCOUNTER → 2021-03-19 | Outpatient (CLI) | payer MEDICARE, OTHER ==
[2021-03-19 17:36] LABS: HCT 39.9 % (39.6-50.0); HGB 12.6 g/dL (13.0-17.0); MCH 32.2 pg (27.0-32.0); MCHC 31.6 g/dL (32.0-37.0); Mean Platelet Volume 10.2 fL (9.5-12.2); Platelet Count 225 X 10*3/uL (140-440); RBC 3.91 X 10*6/uL (4.40-5.60); RDW 13.2 % (11.5-14.5); WBC 9.17 X 10*3/uL (4.50-10.00)
[2021-03-19 21:22] LABS: Erythrocyte Sedimentation Rate 25 mm/Hr (0-20)
[2021-03-20 03:14] LABS: C Reactive Protein 2.6 mg/dL (0.0-0.8); Uric Acid 6.4 mg/dL (3.7-8.7)
== END | disposition home or self-care (01) ==
LOC: LABWHC1 10:36
PROVIDERS: ATTEND Orthopaedic Surgery
DX: Z48.89 Encounter for other specified surgical aftercare (principal); I11.9 Hypertensive heart disease without heart failure; E78.5 Hyperlipidemia, unspecified; M25.561 Pain in right knee; Z96.651 Presence of right artificial knee joint; B99.9 Unspecified infectious disease
CPT/HCPCS: 36415; 83520; 84550; 85027; 85652; 86140

== ENCOUNTER → 2021-04-17 | Outpatient (CLI) | payer MEDICARE, OTHER ==
[2021-04-17 16:01] LABS: Appearance,BF Hazy; Color,BF Orange; Nucleated Cells, Body Fluid 1220 /uL; RBC, Body Fluid 1380 /uL
[2021-04-17 16:35] LABS: Mononuclear WBC,Body Fluid 6 %; Polynuclear WBC,Body Fluid 92 %; Total Cells Counted,Body Fluid 100
== END | disposition home or self-care (01) ==
LOC: LABWHC1 11:53
PROVIDERS: ATTEND Orthopaedic Surgery
DX: Z48.89 Encounter for other specified surgical aftercare (principal); E78.5 Hyperlipidemia, unspecified; I11.9 Hypertensive heart disease without heart failure; M25.561 Pain in right knee; Z96.651 Presence of right artificial knee joint
CPT/HCPCS: 36415; 83520; 85379; 85652; 86140; 87070; 87075; 87205; 89050; 89060

== ENCOUNTER → 2021-05-29 | Outpatient (CLI) | payer MEDICARE, OTHER ==
[2021-05-29 19:11] LABS: HGB 13.8 g/dL (13.0-17.0); MCH 32.2 pg (27.0-32.0); MCHC 32.1 g/dL (32.0-37.0); MCV 100.2 fL (80.0-97.0); Mean Platelet Volume 10.5 fL (9.5-12.2); Platelet Count 208 X 10*3/uL (140-440); RBC 4.29 X 10*6/uL (4.40-5.60); RDW 13.6 % (11.5-14.5); WBC 8.38 X 10*3/uL (4.50-10.00)
[2021-05-29 21:08] LABS: Erythrocyte Sedimentation Rate 8 mm/Hr (0-20)
== END | disposition home or self-care (01) ==
LOC: LABWHC1 11:31
PROVIDERS: ATTEND Orthopaedic Surgery
DX: Z48.89 Encounter for other specified surgical aftercare (principal); I11.9 Hypertensive heart disease without heart failure; M25.561 Pain in right knee; E78.5 Hyperlipidemia, unspecified; Z96.651 Presence of right artificial knee joint
CPT/HCPCS: 36415; 83520; 85027; 85379; 85652; 86140

== ENCOUNTER → 2021-06-06 | Outpatient (CLI) | payer MEDICARE, OTHER ==
[2021-06-06 16:48] LABS: Basophils # (A) 0.03 X 10*3/uL (0.00-0.10); Basophils % (A) 0.4 %; Eosinophils # (A) 0.41 X 10*3/uL (0.04-0.35); Eosinophils % (A) 5.3 %; HCT 41.9 % (39.6-50.0); HGB 13.4 g/dL (13.0-17.0); Lymphocytes # (A) 1.21 X 10*3/uL (0.90-5.00); Lymphocytes % (A) 15.6 %; MCH 32.3 pg (27.0-32.0); Mean Platelet Volume 10.4 fL (9.5-12.2); Monocytes # (A) 0.44 X 10*3/uL (0.20-1.00); Monocytes % (A) 5.7 %; Neutrophils # (A) 5.63 X 10*3/uL (1.80-7.70); Neutrophils % (A) 72.6 %; Platelet Count 191 X 10*3/uL (140-440); RBC 4.15 X 10*6/uL (4.40-5.60); RDW 13.6 % (11.5-14.5); WBC 7.75 X 10*3/uL (4.50-10.00)
[2021-06-06 20:04] LABS: ALT 17 U/L (10-49); AST 21 U/L (14-35); African American GFR (CKD) 59.3 (60.0-200.0); Albumin 4.2 g/dL (3.8-4.9); Albumin/Globulin Ratio 1.75 (1.60-3.17); Alkaline Phosphatase 76 U/L (41-126); BUN/Creat Ratio 19.23 Ratio (12.00-20.00); Calcium 9.7 mg/dL (8.7-10.3); Chloride 106 mmol/L (96-109); Chol/HDL Ratio 2.29 Ratio; Creatine Kinase 41 U/L (35-257); Globulin 2.4 g/dL (1.6-3.3); Glucose 99 mg/dL (70-110); LDL Cholesterol,Calculated 44.1 mg/dL (0.0-131.0); Magnesium 2.2 mg/dL (1.5-2.4); Non-African American GFR(CKD) 51.2 (60.0-200.0); Phosphorus 3.4 mg/dL (2.4-5.1); Potassium 4.6 mmol/L (3.5-5.5); Sodium 143 mmol/L (135-145); Total Protein 6.6 g/dL (6.2-8.2); VLDL Calculation 9.96 mg/dL (5.00-40.00)
[2021-06-06 20:39] LABS: Erythrocyte Sedimentation Rate 8 mm/Hr (0-20)
[2021-06-06 21:27] LABS: C Reactive Protein <0.30 mg/dL (0.00-0.80)
== END | disposition home or self-care (01) ==
LOC: LABWHC1 09:44
PROVIDERS: ATTEND Internal Medicine
DX: Z00.00 Encounter for general adult medical examination without abnormal findings (principal); D64.9 Anemia, unspecified; N40.0 Benign prostatic hyperplasia without lower urinary tract symptoms; J44.9 Chronic obstructive pulmonary disease, unspecified; E87.8 Other disorders of electrolyte and fluid balance, not elsewhere classified; N18.30 Chronic kidney disease, stage 3 unspecified; E78.5 Hyperlipidemia, unspecified; E21.3 Hyperparathyroidism, unspecified; E03.9 Hypothyroidism, unspecified; I95.9 Hypotension, unspecified; E55.9 Vitamin D deficiency, unspecified
CPT/HCPCS: 36415; 80053; 80061; 82550; 83735; 83880; 83970; 84100; 84153; 84443; 85025; 85652; 86140

== ENCOUNTER → 2021-07-21 | Outpatient (CLI) | payer MEDICARE, OTHER ==
[2021-07-22 03:05] LABS: Folate, Serum 11.9 ng/mL (4.40-31.00)
== END | disposition home or self-care (01) ==
LOC: LABWHC1 15:26
PROVIDERS: ATTEND Internal Medicine
DX: D64.9 Anemia, unspecified (principal); D75.89 Other specified diseases of blood and blood-forming organs; E53.8 Deficiency of other specified B group vitamins
CPT/HCPCS: 36415; 82607; 82746

== ENCOUNTER 2021-08-21 19:31 | Emergency (ER) | payer MEDICARE, OTHER ==
--- NOTE | 2021-08-21 19:49 | ED ---
General Adult HPI - General Stated complaint: Covid+,Wants antibody Time Seen by Provider: 08/21/21 19:35 Source: patient, RN notes reviewed, old records reviewed - History of Present Illness Initial comments: This is an 81-year-old male who presents emergency department stating that his had cold said 2 days ago he went to [facility] and was tested for COVID himself and he tested positive and they called him today. Patient states he had no symptoms until today and today he developed a dry cough. Patient denies any difficulty breathing or shortness of breath. Patient denies any chest pain or palpitations. Patient denies any fever chills or loss of taste or smell. Patient denies any abdominal pain. Patient denies nausea vomiting diarrhea. - Related Data Home Medications Medication Instructions Recorded Confirmed Famotidine 40 mg PO HS 03/26/14 02/20/19 Montelukast [Singulair] 10 mg PO QAM 03/26/14 02/20/19 Atorvastatin [Lipitor] 40 mg PO HS 04/24/14 02/20/19 Diclofenac Sodium [Voltaren] 50 mg PO BID 08/25/17 02/20/19 Edoxaban Tosylate [Savaysa] 60 mg PO QAM 08/25/17 02/20/19 Losartan Potassium 150 mg PO QAM 08/25/17 02/20/19 Tamsulosin [Flomax] 0.4 mg PO HS 08/25/17 02/20/19 allopurinoL [Zyloprim] 100 mg PO HS 08/25/17 02/20/19 amLODIPine [Norvasc] 10 mg PO HS 08/25/17 02/20/19 carvediloL [Coreg] 9.37 mg PO BID 08/25/17 02/20/19 Aspirin 81 mg PO QAM 01/31/18 02/20/19 Cholecalciferol (Vitamin D3) 2,000 mg PO DAILY 02/10/19 02/20/19 [Vitamin D3] Furosemide [Lasix] 20 mg PO DAILY 02/10/19 02/20/19 Previous Rx's Medication Instructions Recorded Aspirin [Adult Low Dose Aspirin EC] 81 mg PO DAILY #1 tablet. 02/20/19 HYDROcodone/APAP 5-325MG [[place] 1 - 2 each PO Q4-6H PRN #50 tab 02/20/19 5-325] Sennosides-Docusate Sodium 1 tab PO BID #60 tablet 02/20/19 [Senokot-S] Allergies Allergy/AdvReac Type Severity Reaction Status Date / Time No Known Allergies Allergy Verified 02/20/19 14:03 Review of Systems ROS Statement: Those systems with pertinent positive or pertinent negative responses have been documented in the HPI. ROS Other: All systems not noted in ROS Statement are negative. Past Medical History Past Medical History: Asthma, Coronary Artery Disease (CAD), Cancer, GERD/Reflux, Hearing Disorder / Deafness, Hyperlipidemia, Hypertension, Memory Impairment, Myocardial Infarction ([place]), Osteoarthritis (OA), Sleep Apnea/CPA P/BIPAP Additional Past Medical History / Comment(s): See Dr Khoury's H&P. Past hx of CHEST PAIN W/ EXERTION, SKIN CANCER. Asthma resolved. CPAP use. Age related memory impairment. Hard of hearing. Last Myocardial Infarction Date:: 2007 History of Any Multi-Drug Resistant Organisms: None Reported Past Surgical History: Adenoidectomy, Cardiac Ablation, Heart Catheterization With Stent, Hernia Repair, Pacemaker, Tonsillectomy Additional Past Surgical History / Comment(s): Quad vessel CABG 2007, UMBILICAL HERNIA X 2, blepheroplasty, total 4 cardaic stents, skin tags removed, colonoscopy/polys removed were benign, hemorroidectomy, rt knee arthroscopy. Cardiac Ablation X2. 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 Past Psychological History: No Psychological Hx Reported Past Alcohol Use History: None Reported Past Drug Use History: None Reported - Past Family History Father Family Medical History: Myocardial Infarction ([place]) Mother Family Medical History: Cancer Additional Family Medical History / Comment(s): SKIN General Exam - General Exam Comments Initial Comments: GENERAL: Patient is well-developed and well-nourished. Patient is nontoxic and well- hydrated and is in no acute distress. ENT: Neck has full range of motion without eliciting any pain. EYES: The sclera were anicteric and conjunctiva were pink and moist. Extraocular movements were intact and pupils were equal round and reactive to light. Eyelids were unremarkable. PULMONARY: Unlabored respirations. Good breath sounds bilaterally. No audible rales rhonchi or wheezing was noted. CARDIOVASCULAR: There is a regular rate and rhythm without any murmurs gallops or rubs. ABDOMEN: Soft and nontender with normal bowel sounds. SKIN: Skin is clear with no lesions or rashes and otherwise unremarkable. NEUROLOGIC: Patient is alert and oriented x3. Cranial nerves II through XII are grossly intact. Motor and sensory are also intact. Normal speech, volume and content. Symmetrical smile. MUSCULOSKELETAL: Normal extremities with adequate strength and full range of motion. LYMPHATICS: No significant lymphadenopathy is noted PSYCHIATRIC: Normal psychiatric evaluation. Medical Decision Making - Medical Decision Making Patient came to the emergency department requesting monoclonal antibodies. Patient does qualify. Patient received monoclonal antibodies. Disposition Clinical Impression: COVID-19 Disposition: HOME SELF-CARE Condition: Good Instructions (If sedation given, give patient instructions): Coronavirus Disease 2019 (COVID-19) Is patient prescribed a controlled substance at d/c from ED?: No Referrals: Cole Gomez MD [Primary Care Provider] - 1-2 days Time of Disposition: 19:51
[2021-08-21] MEDS ORDERED: SODIUM CHLORIDE 0.9% 50 ML IVPB ONE (20:15)
[2021-08-21] MEDS ORDERED: CASIRIVIMAB (REGN10933) (EUA) 600 MG, IMDEVIMAB (REGN10987) (EUA) 600 MG in SODIUM CHLO... IVPB ONE (20:15)
[2021-08-21 22:05] VITALS: BP 133/75; PULSE 52; RESP 16; TEMP 98.2
== END 2021-08-21 22:04 | disposition home or self-care (01) ==
LOC: EC 19:31
DX: U07.1 COVID-19 (principal); J45.909 Unspecified asthma, uncomplicated; I25.10 Atherosclerotic heart disease of native coronary artery without angina pectoris; K21.9 Gastro-esophageal reflux disease without esophagitis; E78.5 Hyperlipidemia, unspecified; I25.2 Old myocardial infarction; I10 Essential (primary) hypertension; M19.90 Unspecified osteoarthritis, unspecified site; Z79.82 Long term (current) use of aspirin; Z85.828 Personal history of other malignant neoplasm of skin; Z95.0 Presence of cardiac pacemaker
CPT/HCPCS: 99283; Q0244

== ENCOUNTER → 2022-06-22 | Outpatient (CLI) | payer MEDICARE, OTHER ==
[2022-06-22 15:33] LABS: Basophils # (A) 0.03 X 10*3/uL (0.00-0.10); Basophils % (A) 0.3 %; Eosinophils # (A) 0.56 X 10*3/uL (0.04-0.35); Eosinophils % (A) 6.1 %; HCT 42.7 % (39.6-50.0); Immature Grans, Automated 0.3 %; Lymphocytes # (A) 1.44 X 10*3/uL (0.90-5.00); Lymphocytes % (A) 15.6 %; MCH 32.6 pg (27.0-32.0); MCHC 32.8 g/dL (32.0-37.0); MCV 99.3 fL (80.0-97.0); Mean Platelet Volume 10.3 fL (9.5-12.2); Monocytes # (A) 0.51 X 10*3/uL (0.20-1.00); Monocytes % (A) 5.5 %; NRBC Per 100 WBC 0 /100 WBCS (0.0-0.0); Neutrophils # (A) 6.65 X 10*3/uL (1.80-7.70); Neutrophils % (A) 72.2 %; Platelet Count 195 X 10*3/uL (140-440); RDW 13.2 % (11.5-14.5); WBC 9.22 X 10*3/uL (4.50-10.00)
[2022-06-22 15:41] LABS: Erythrocyte Sedimentation Rate 2 mm/Hr (0-20)
[2022-06-22 16:29] LABS: C Reactive Protein <0.30 mg/dL (0.00-0.80); Chol/HDL Ratio 2.19 Ratio; LDL Cholesterol,Calculated 40.2 mg/dL (0.0-131.0); VLDL Calculation 10.22 mg/dL (5.00-40.00)
[2022-06-22 16:34] LABS: ALT 23 U/L (10-49); AST 20 U/L (14-35); African American GFR (CKD) 53.8 (60.0-200.0); Albumin 4.3 g/dL (3.8-4.9); Albumin/Globulin Ratio 2.15 (1.60-3.17); Alkaline Phosphatase 73 U/L (41-126); BUN/Creat Ratio 14.79 Ratio (12.00-20.00); Blood Urea Nitrogen 20.7 mg/dL (9.0-27.0); Carbon Dioxide 27.3 mmol/L (20.0-27.5); Chloride 107 mmol/L (96-109); Creatine Kinase 52 U/L (35-257); Glucose 103 mg/dL (70-110); Magnesium 2.2 mg/dL (1.5-2.4); Non-African American GFR(CKD) 46.5 (60.0-200.0); Phosphorus 3.1 mg/dL (2.4-5.1); Sodium 144 mmol/L (135-145); Total Protein 6.3 g/dL (6.2-8.2); Uric Acid 6.3 mg/dL (3.7-8.7)
== END | disposition home or self-care (01) ==
LOC: LABWHC1 10:19
PROVIDERS: ATTEND Internal Medicine
DX: Z00.00 Encounter for general adult medical examination without abnormal findings (principal); D64.9 Anemia, unspecified; N40.0 Benign prostatic hyperplasia without lower urinary tract symptoms; I11.0 Hypertensive heart disease with heart failure; I50.9 Heart failure, unspecified; J44.9 Chronic obstructive pulmonary disease, unspecified; E87.8 Other disorders of electrolyte and fluid balance, not elsewhere classified; M10.9 Gout, unspecified; E78.5 Hyperlipidemia, unspecified; E03.9 Hypothyroidism, unspecified; E55.9 Vitamin D deficiency, unspecified; I25.5 Ischemic cardiomyopathy; I25.10 Atherosclerotic heart disease of native coronary artery without angina pectoris
CPT/HCPCS: 36415; 80053; 80061; 82306; 82550; 83735; 84100; 84153; 84443; 84550; 85025; 85652; 86140

== ENCOUNTER → 2022-11-03 | Outpatient (CLI) | payer OTHER ==
[2022-11-03 17:30] LABS: African American GFR (CKD) 36.3 (60.0-200.0); Albumin 4.1 g/dL (3.8-4.9); Albumin/Globulin Ratio 1.91 (1.60-3.17); Anion Gap 9.5 mmol/L (10.00-18.00); BUN/Creat Ratio 19.38 Ratio (12.00-20.00); Blood Urea Nitrogen 37.6 mg/dL (9.0-27.0); Calcium 9.5 mg/dL (8.7-10.3); Carbon Dioxide 27.5 mmol/L (20.0-27.5); Globulin 2.1 g/dL (1.6-3.3); Non-African American GFR(CKD) 31.3 (60.0-200.0); Potassium 4.3 mmol/L (3.5-5.5); Total Bilirubin 0.4 mg/dL (0.30-1.20); Total Protein 6.2 g/dL (6.2-8.2)
== END | disposition home or self-care (01) ==
LOC: LABWHC1 09:13
PROVIDERS: ATTEND Internal Medicine
DX: I11.0 Hypertensive heart disease with heart failure (principal); I50.9 Heart failure, unspecified; J44.9 Chronic obstructive pulmonary disease, unspecified; E87.8 Other disorders of electrolyte and fluid balance, not elsewhere classified; R60.9 Edema, unspecified
CPT/HCPCS: 36415; 80053; 84484

== ENCOUNTER → 2022-11-17 | Outpatient (CLI) | payer OTHER ==
--- NOTE | 2022-11-17 11:30 | XR ---
EXAMINATION TYPE: XR shoulder complete LT DATE OF EXAM: 11/17/2022 COMPARISON: NONE HISTORY: Pain TECHNIQUE: Three views are submitted. FINDINGS: The osseous structures are intact. There is no acute fracture or dislocation. Cardiac device is note d there is moderate to severe AC joint arthropathy. Soft tissue ossifications around the humeral head seen with spurring along the medial aspect of the inferior humeral head and complete loss of glenohu meral joint space. IMPRESSION: 1. Severe glenohumeral joint arthropathy with complete loss of joint space. 2. Moderate to severe AC joint arthropathy.
[2022-11-17 17:23] LABS: African American GFR (CKD) 49.5 (60.0-200.0); BUN/Creat Ratio 19.07 Ratio (12.00-20.00); Blood Urea Nitrogen 28.6 mg/dL (9.0-27.0); Calcium 9.7 mg/dL (8.7-10.3); Magnesium 2.3 mg/dL (1.5-2.4); Non-African American GFR(CKD) 42.7 (60.0-200.0); Phosphorus 2.8 mg/dL (2.4-5.1); Potassium 4.3 mmol/L (3.5-5.5); T4, Free (Free Thyroxine) 1.36 ng/dL (0.800-1.800)
== END | disposition home or self-care (01) ==
LOC: LABWHC1 10:24
PROVIDERS: ATTEND Internal Medicine
DX: I50.9 Heart failure, unspecified (principal); E87.8 Other disorders of electrolyte and fluid balance, not elsewhere classified; E03.9 Hypothyroidism, unspecified; M19.012 Primary osteoarthritis, left shoulder
CPT/HCPCS: 36415; 80048; 83735; 83880; 84100; 84439; 84443

== ENCOUNTER → 2023-03-23 | Outpatient (CLI) | payer MEDICARE, OTHER | END | disposition home or self-care (01) | LOC: LABWHC1 11:57 | PROVIDERS: ATTEND Internal Medicine | DX: E29.1 Testicular hypofunction (principal); N52.9 Male erectile dysfunction, unspecified | CPT/HCPCS: 36415; 84402; 84403 ==

== ENCOUNTER 2023-04-25 20:41 | Emergency (ER) | payer MEDICARE, OTHER ==
[2023-04-25 21:40] VITALS: TEMP 97.6
--- NOTE | 2023-04-25 21:44 | ED ---
General Adult HPI - General Source: patient, RN notes reviewed <Tabitha Kebede - Last Filed: 04/25/23 21:39> <Nelida Perdue - Last Filed: 04/26/23 10:00> - General Stated complaint: Finger laceration Time Seen by Provider: 04/25/23 21:40 - History of Present Illness Initial comments: 83 year old male presents to the emergency department for chief complaint of right 3rd digit laceration/abrasion. He states that he is on blood thinners. He states that he cut it on something in the wash tub but is not sure what he cut it out. He is coming in because it has continued to bleed. He is up to date on his tetanus vaccinations. (Tabitha Kebede) 83 year old male presents emergency room with skin avulsion to his right third finger. States that he was reaching into the wash tub and he felt pain. When he retracted his hand he saw that he had bleeding coming from his right third finger. He is on blood thinners. He placed some paper towel to the area and came immediately into the emergency department. He was unable to get the bleeding controlled originally. He denies having much pain. He does not take anything for the pain before coming into the emergency department. Denies any numbness, tingling or weakness in his finger. No other injury sustained. Patient is right hand dominant. No other alleviating, precipitating or modifying factors (Nelida Perdue) - Related Data Home Medications Medication Instructions Recorded Confirmed Famotidine 40 mg PO HS 03/26/14 02/20/19 Montelukast [Singulair] 10 mg PO QAM 03/26/14 02/20/19 Atorvastatin [Lipitor] 40 mg PO HS 04/24/14 02/20/19 Diclofenac Sodium [Voltaren] 50 mg PO BID 08/25/17 02/20/19 Edoxaban Tosylate [Savaysa] 60 mg PO QAM 08/25/17 02/20/19 Losartan Potassium 150 mg PO QAM 08/25/17 02/20/19 Tamsulosin [Flomax] 0.4 mg PO HS 08/25/17 02/20/19 allopurinoL [Zyloprim] 100 mg PO HS 08/25/17 02/20/19 amLODIPine [Norvasc] 10 mg PO HS 08/25/17 02/20/19 carvediloL [Coreg] 9.37 mg PO BID 08/25/17 02/20/19 Aspirin 81 mg PO QAM 01/31/18 02/20/19 Cholecalciferol (Vitamin D3) 2,000 mg PO DAILY 02/10/19 02/20/19 [Vitamin D3] Furosemide [Lasix] 20 mg PO DAILY 02/10/19 02/20/19 Previous Rx's Medication Instructions Recorded Aspirin [Adult Low Dose Aspirin EC] 81 mg PO DAILY #1 tablet. 02/20/19 HYDROcodone/APAP 5-325MG [[place] 1 - 2 each PO Q4-6H PRN #50 tab 02/20/19 5-325] Sennosides-Docusate Sodium 1 tab PO BID #60 tablet 02/20/19 [Senokot-S] Allergies Allergy/AdvReac Type Severity Reaction Status Date / Time No Known Allergies Allergy Verified 04/25/23 21:40 Review of Systems ROS Other: All systems not noted in ROS Statement are negative. <Tabitha Kebede - Last Filed: 04/25/23 21:39> ROS Other: All systems not noted in ROS Statement are negative. <Nelida ePrdue - Last Filed: 04/26/23 10:00> ROS Statement: Those systems with pertinent positive or pertinent negative responses have been documented in the HPI. Past Medical History Past Medical History: Asthma, Coronary Artery Disease (CAD), Cancer, GERD/Reflux, Hearing Disorder / Deafness, Hyperlipidemia, Hypertension, Memory Impairment, Myocardial Infarction (MD), Osteoarthritis (OA), Sleep Apnea/CPAP/BIPAP Additional Past Medical History / Comment(s): See Dr Khoury's H&P. Past hx of CHEST PAIN W/ EXERTION, SKIN CANCER. Asthma resolved. CPAP use. Age related memory impairment. Hard of hearing. Last Myocardial Infarction Date:: 2007 History of Any Multi-Drug Resistant Organisms: None Reported Past Surgical History: Adenoidectomy, Cardiac Ablation, Heart Catheterization With Stent, Hernia Repair, Pacemaker, Tonsillectomy Additional Past Surgical History / Comment(s): Quad vessel CABG 2007, UMBILICAL HERNIA X 2, blepheroplasty, total 4 cardaic stents, skin tags removed, co lonoscopy/polys removed were benign, hemorroidectomy, rt knee arthroscopy. Cardiac Ablation X2. 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 Past Psychological History: No Psychological Hx Reported Past Alcohol Use History: None Reported Past Drug Use History: None Reported - Past Family History Father Family Medical History: Myocardial Infarction (MD) Mother Family Medical History: Cancer Additional Family Medical History / Comment(s): SKIN <Tabitha Kebede - Last Filed: 04/25/23 21:39> General Exam <Tabitha Kebede - Last Filed: 04/25/23 21:39> General appearance: alert, in no apparent distress Extremities exam: Present: other (Skin avulsion to the right medial aspect of the third distal phalanx. There is some active oozing at this time. He continues to have normal range of motion. Intact sensation. Cap refill is less than 3 seconds. 2+ radial and ulnar pulses.) Neurological exam: Present: alert, oriented X3, CN II-XII intact Psychiatric exam: Present: normal affect, normal mood <Nelida Perdue - Last Filed: 04/26/23 10:00> - General Exam Comments Initial Comments: Visual Physical Exam Vital signs reviewed General: Well-appearing, nontoxic, no acute distress. Head: Normocephalic, atraumatic Eyes: PERRLA, EOMI ENT: Airway patent Chest: Nonlabored breathing Skin: No visual rash, normal skin tone, dressing on right middle finger Neuro: Alert and oriented 3 Musculoskeletal: No gross abnormalities (Tabitha Kebede) Course Vital Signs 04/25/23 04/25/23 21:38 23:24 Temperature 97.6 F Pulse Rate 59 L 50 L Respiratory 16 18 Rate Blood Pressure 159/76 O2 Sat by Pulse 94 L 95 Oximetry Medical Decision Making <Tabitha Kebede - Last Filed: 04/25/23 21:39> <Nelida Perdue - Last Filed: 04/26/23 10:00> - Medical Decision Making I preformed the quick note portion of this chart. Electronically signed by Tabitha Kebede PA-C (Tabitha Kebede) Was pt. sent in by a medical professional or institution (ALLA Miller, TRANSCRIPT CLERK, urgent care, hospital, or correction...) When possible be specific @ -No Did you speak to anyone other than the patient for history (EMS, parent, family, police, friend...)? What history was obtained from this source @ -No Did you review nursing and triage notes (agree or disagree)? Why? @ -I reviewed and agree with nursing and triage notes Were old charts reviewed (outside hosp., previous admission, EMS record, old EKG, old radiological studies, urgent care reports/EKG's, correction records)? Report findings @ -No old charts were reviewed Differential Diagnosis (chest pain, altered mental status, abdominal pain women, abdominal pain men, vaginal bleeding, weakness, fever, dyspnea, syncope, headache, dizziness, GI bleed, back pain, seizure, CVA, palpatations, mental health, musculoskeletal)? @ -Laceration, abrasion, skin avulsion, cellulitis, puncture injury EKG interpreted by me (3pts min.). @ -Not done X-rays interpreted by me (1pt min.). @ -None done CT interpreted by me (1pt min.). @ -None done U/S interpreted by me (1pt. min.). @ -None done What testing was considered but not performed or refused? (CT, X-rays, U/S, labs)? Why? @ -None What meds were considered but not given or refused? Why? @ -None Did you discuss the management of the patient with other professionals (professionals i.e. ALLA Miller, TRANSCRIPT CLERK, lab, RT, psych nurse, rn social services, immigration lawyer, teacher, labor relations officer, case advocate)? Give summary @ -No Was smoking cessation discussed for >3mins.? @ -No Was critical care preformed (if so, how long)? @ -No Were there social determinants of health that impacted care today? How? (Homelessness, low income, unemployed, alcoholism, drug addiction, transportation, low edu. Level, literacy, decrease access to med. care, residential, rehab)? @ -No Was there de-escalation of care discussed even if they declined (Discuss DNR or withdrawal of care, Hospice)? DNR status @ -No What co-morbidities impacted this encounter? (DM, HTN, Smoking, COPD, CAD, Cancer, CVA, ARF, Chemo, Hep., AIDS, mental health diagnosis, sleep apnea, morbid obesity)? @ -A. fib on anticoagulation Was patient admitted / discharged? Hospital course, mention meds given and route, prescriptions, significant lab abnormalities, going to OR and other pertinent info. @ -Upon arrival patient was placed into room 31. A thorough history and physical exam is performed. Patient does have a skin avulsion noted to his distal third phalanx on the right. This area is cleansed using normal saline. I then placed gelfoam to the site and wrapped it with kerlix. Patient's tetanus was updated. Patient was discharged home at this time and instructed to follow- up with primary care doctor in 2-4 days. Return for any worsening symptoms. He is to keep the area clean. He was agreeable to this plan and is discharged in stable condition Undiagnosed new problem with uncertain prognosis? @ -No Drug Therapy requiring intensive monitoring for toxicity (Heparin, Nitro, Insulin, Cardizem)? @ -No Were any procedures done? @ -No Diagnosis/symptom? @ -acute skin avulsion medial right distal phalanx Acute, or Chronic, or Acute on Chronic? @ -acute Uncomplicated (without systemic symptoms) or Complicated (systemic symptoms)? @ -uncomplicated Side effects of treatment? @ -No Exacerbation, Progression, or Severe Exacerbation? @ -No Poses a threat to life or bodily function? How? (Chest pain, USA, MD, pneumonia, PE, COPD, DKA, ARF, appy, cholecystitis, CVA, Diverticulitis, Homicidal, Suicidal, threat to staff... and all critical care pts) @ -No (Nelida Perdue) Disposition <Tabitha Kebede - Last Filed: 04/25/23 21:39> Is patient prescribed a controlled substance at d/c from ED?: No Time of Disposition: 23:04 <Nelida Perdue - Last Filed: 04/26/23 10:00> Clinical Impression: Skin avulsion, Tetanus toxoid vaccination status unknown Disposition: HOME SELF-CARE Condition: Stable Instructions (If sedation given, give patient instructions): Diphtheria/Acellular Pertussis/Tetanus Booster Vaccine (By injection), Skin Avulsion (ED) Additional Instructions: Please keep the area cover for the next 24 hours. Keep the area clean and dry. D o not soak. Follow up with your pcp in 2-4 days and return for any new or worsening symptoms. Referrals: Cole Gomez MD [Primary Care Provider] - 1-2 days
[2023-04-25] MEDS ORDERED: GELATIN SPONGE,ABSORB (SMALL) 1 EACH SPONGE TOPICAL STA (22:37)
[2023-04-25] MEDS ORDERED: DIPH,PERTUS(ACELL)TETVAC-LF 0.5 ML VIAL IM ONE (22:38)
[2023-04-25 23:26] VITALS: BP 159/76; PULSE 50; RESP 18
== END 2023-04-25 23:26 | disposition home or self-care (01) ==
LOC: EC 20:41
DX: S61.219A Laceration without foreign body of unspecified finger without damage to nail, initial encounter (principal); J45.909 Unspecified asthma, uncomplicated; I25.10 Atherosclerotic heart disease of native coronary artery without angina pectoris; E78.5 Hyperlipidemia, unspecified; I10 Essential (primary) hypertension; I25.2 Old myocardial infarction; M19.90 Unspecified osteoarthritis, unspecified site; G47.30 Sleep apnea, unspecified; Z79.01 Long term (current) use of anticoagulants; Z79.82 Long term (current) use of aspirin; Z79.899 Other long term (current) drug therapy; Z79.1 Long term (current) use of non-steroidal anti-inflammatories (NSAID); Z95.0 Presence of cardiac pacemaker; Z23 Encounter for immunization; X58.XXXA Exposure to other specified factors, initial encounter
CPT/HCPCS: 90471; 90715; 99282

== ENCOUNTER 2023-05-20 06:48 | Day surgery (SDC) | payer MEDICARE, OTHER ==
[2023-05-18 14:56] VITALS: BMI 28.7
[~2023-05-20 06:48] MED LIST changes: -ACETAMINOPHEN TAB 500 MG TAB PO ONE; -DEXAMETHASONE SOD PHOSPHATE 10 MG/ML 1 ML VIAL IV ONE; -LACTATED RINGERS 1,000 ML IV SCH; -LIDOCAINE 1% 20 ML VIAL (10MG/ML) FOR IV START INTRADERMA PRN; -MELOXICAM 7.5 MG TAB PO ONE; -ONDANSETRON 4 MG/2 ML VIAL IVP ONE; -ROPIVACAINE 246.25 MG, EPINEPHrine 0.5 MG, KETOROLAC 30 MG, cloNIDine HCL/PF 80 MCG, WA... MISCELLANE STA; +SODIUM CHLORIDE 0.9% 1,000 ML IV SCH; -TRANEXAMIC ACID 1,000 MG in SODIUM CHLORIDE 0.9% 100 ML IVPB ONE; -ceFAZolin IN SWFI 2 GM/20 ML SYRINGE IVP ONE
[2023-05-20] MEDS ORDERED: SODIUM CHLORIDE 0.9% 500 ML 500 ML IV ONE (07:03)
[2023-05-20 07:16] VITALS: BP 135/61; PULSE 55; RESP 16; TEMP 97.8
[2023-05-20 07:17] LABS: Glucose,Whole Blood 104 mg/dL (70-110)
--- NOTE | 2023-05-20 14:13 | P.EPPROC ---
- EP Procedure Note Electrophysiology Procedure Note: Diagnosis Recurrent syncope Twelve-lead EKG shows underlying atrial fibrillation with RV pacing, RV septal pacing Tilt table test per protocol Baseline blood pressure 150 606 9 mmHg pulse rate 50 beats a minute Patient was tilted upright at an angle of 70 per protocol There was an immediate drop in his blood pressure 238/70 mmHg Heart rate remained in the 50s Subsequently there was a gradual progressive drop in his blood pressure. Close blood pressure recorded was 106/59 mmHg No symptoms When he was laid supine his blood pressure normalized 239/67 mmHg Impression Atrial fibrillation with ventricular pacing Mild orthostatic hypotension syndrome
== END 2023-05-20 08:17 | disposition home or self-care (01) ==
LOC: CATHEP 06:48
PROVIDERS: ATTEND Internal Medicine Clinical Cardiac Electrophysiology
DX: I48.19 Other persistent atrial fibrillation (principal); I95.1 Orthostatic hypotension; I25.10 Atherosclerotic heart disease of native coronary artery without angina pectoris; I49.5 Sick sinus syndrome; I11.0 Hypertensive heart disease with heart failure; I50.9 Heart failure, unspecified; E78.5 Hyperlipidemia, unspecified; I42.8 Other cardiomyopathies; Z95.5 Presence of coronary angioplasty implant and graft; Z79.82 Long term (current) use of aspirin; Z79.899 Other long term (current) drug therapy
CPT/HCPCS: 93660

== ENCOUNTER 2023-07-01 20:44 | Observation (INO) | payer MEDICARE, OTHER ==
--- NOTE | 2023-07-01 21:10 | ED ---
Chest Pain HPI - General Chief Complaint: Chest Pain Stated Complaint: Chest Pain Time Seen by Provider: 07/01/23 21:04 Source: patient, RN notes reviewed, old records reviewed Mode of arrival: ambulatory Limitations: no limitations - History of Present Illness Initial Comments: This is an 83-year-old male to the emergency department for evaluation today. Patient presents the emergency room. for evaluation regards to chest pain. Right-sided chest pain. Patient is concerned regarding chest pain significant history of heart disease CABG with stent placement. MD Complaint: chest pain -: hour(s) Onset: during rest, during exertion Pain Location: substernal Pain Radiation: none Severity: mild Quality: tightness, heaviness Consistency: constant - Related Data Home Medications Medication Instructions Recorded Confirmed Famotidine 40 mg PO HS 03/26/14 05/20/23 Montelukast [Singulair] 10 mg PO QAM 03/26/14 05/20/23 Atorvastatin [Lipitor] 40 mg PO Q48H 04/24/14 05/18/23 Diclofenac Sodium [Voltaren] 50 mg PO HS 08/25/17 05/20/23 Edoxaban Tosylate [Savaysa] 60 mg PO HS 08/25/17 05/20/23 Tamsulosin [Flomax] 0.4 mg PO HS 08/25/17 05/20/23 allopurinoL [Zyloprim] 100 mg PO QAM 08/25/17 05/20/23 amLODIPine [Norvasc] 10 mg PO QAM 08/25/17 05/20/23 Aspirin 81 mg PO QAM 01/31/18 05/20/23 Candesartan [Atacand] 32 mg PO DAILY 05/18/23 05/20/23 Cholecalciferol [Vitamin D3 (25 25 mcg PO DAILY 05/18/23 05/20/23 Mcg = 1000 Iu)] Furosemide [Lasix] 40 mg PO QAM 05/18/23 05/20/23 carvediloL 12.5 mg PO BID 05/18/23 05/20/23 Allergies Allergy/AdvReac Type Severity Reaction Status Date / Time No Known Allergies Allergy Verified 07/01/23 20:53 Review of Systems ROS Statement: Those systems with pertinent positive or pertinent negative responses have been documented in the HPI. ROS Other: All systems not noted in ROS Statement are negative. EKG Findings - EKG Comments: EKG Findings:: EKG is paced 49 QRS 181 QTc 473 Past Medical History Past Medical History: Asthma, Coronary Artery Disease (CAD), Cancer, GERD/Reflux, Hearing Disorder / Deafness, Hyperlipidemia, Hypertension, Memory Impairment, Myocardial Infarction (GA), Osteoarthritis (OA), Sleep Apnea/CPAP/BIPAP Additional Past Medical History / Comment(s): See Cardiology H&P. HX CHEST PAIN W/ EXERTION. HX SKIN CANCER. Asthma resolved. CPAP use. Age related memory impairment. Hard of hearing. Last Myocardial Infarction Date:: 2007 History of Any Multi-Drug Resistant Organisms: None Reported Past Surgical History: Adenoidectomy, Cardiac Ablation, Coronary Bypass/CABG, Heart Catheterization With Stent, Hernia Repair, Orthopedic Surgery, Pacemaker, Tonsillectomy Additional Past Surgical History / Comment(s): Quadruple vessel CABG 2008, umbilical hernia repair X2, blepheroplasty, total 4 cardiac stents, skin tags removed, colonoscopy/benign polyps removed, hemorroidectomy, right knee arthroscopy, cardiac ablation X2, skin cancer removed from left ear. Past Anesthesia/Blood Transfusion Reactions: No Reported Reaction Date of Last Stent Placement:: 2007 Type of Cardiac Device: Permanent Pacemaker Device Placement Date:: ? Past Psychological History: No Psychological Hx Reported Smoking Status: Never smoker Past Alcohol Use History: None Reported Past Drug Use History: None Reported - Past Family History Father Family Medical History: Myocardial Infarction (GA) Mother Family Medical History: Cancer Additional Family Medical History / Comment(s): SKIN CANCER. General Exam Limitations: no limitations General appearance: alert, in no apparent distress, anxious Head exam: Present: atraumatic, normocephalic, normal inspection Eye exam: Present: normal appearance, PERRL, EOMI. Absent: scleral icterus, conjunctival injection, periorbital swelling ENT exam: Present: normal exam, mucous membranes moist Neck exam: Present: normal inspection. Absent: tenderness, meningismus, lymphadenopathy Respiratory exam: Present: normal lung sounds bilaterally. Absent: respiratory distress, wheezes, rales, rhonchi, stridor Cardiovascular Exam: Present: regular rate, normal rhythm, normal heart sounds. Absent: systolic murmur, diastolic murmur, rubs, gallop, clicks GI/Abdominal exam: Present: soft, normal bowel sounds. Absent: distended, tenderness, guarding, rebound, rigid Extremities exam: Present: normal inspection, full ROM, normal capillary refill. Absent: tenderness, pedal edema, joint swelling, calf tenderness Back exam: Present: normal inspection Neurological exam: Present: alert, oriented X3, CN II-XII intact Psychiatric exam: Present: normal affect, normal mood Skin exam: Present: warm, dry, intact, normal color. Absent: rash Course Vital Signs 07/01/23 20:51 Temperature 98.2 F Pulse Rate 55 L Respiratory 16 Rate Blood Pressure 130/66 O2 Sat by Pulse 96 Oximetry - Reevaluation(s) Reevaluation #1: 07/01/23 21:54 Medical records reviewed Reevaluation #2: 07/01/23 22:26 Patient still having chest pain here in the ER Reevaluation #3: 07/01/23 22:26 Patient informed results questions answered Reevaluation #4: 07/01/23 21:54 Was pt. sent in by a medical professional or institution (, PA, BROADBAND INSTALLER, urgent care, hospital, or [facility]...) When possible be specific @ -no Did you speak to anyone other than the patient for history (EMS, parent, family, police, friend...)? What history was obtained from this source @ -no Did you review nursing and triage notes (agree or disagree)? Why? @ -agree Are old charts reviewed (outside hosp., previous admission, EMS record, old EKG, old radiological studies, urgent care reports/EKG's, [facility] records)? Report findings @ -yes Differential Diagnosis (chest pain, altered mental status, abdominal pain women, abdominal pain men, vaginal bleeding, weakness, fever, dyspnea, syncope, headache, dizziness, GI bleed, back pain, seizure, CVA, palpatations, mental health, musculoskeletal)? @ -prior EKG interpreted by me (3pts min.). @ -yes X-rays interpreted by me (1pt min.). @ -yes CT interpreted by me (1pt min.). @ -no U/S interpreted by me (1pt. min.). @ -no What testing was considered but not performed or refused? (CT, X-rays, U/S, labs)? Why? @ -none What meds were considered but not given or refused? Why? @ -none Did you discuss the management of the patient with other professionals (professionals i.e. , PA, BROADBAND INSTALLER, lab, RT, psych nurse, transition social worker, supervisor landscape, teacher, operations officer, case briefer)? Give summary @ -no Was smoking cessation discussed for >3mins.? @ -no Was critical care preformed (if so, how long)? @ -no Were there social determinants of health that impacted care today? How? (Homelessness, low income, unemployed, alcoholism, drug addiction, transportation, low edu. Level, literacy, decrease access to med. care, snf, rehab)? @ -none Was there de-escalation of care discussed even if they declined (Discuss DNR or withdrawal of care, Hospice)? DNR status @ -no What co-morbidities impacted this encounter? (DM, HTN, Smoking, COPD, CAD, Cancer, CVA, ARF, Chemo, Hep., AIDS, mental health diagnosis, sleep apnea, morbid obesity)? @ -none Was patient admitted / discharged? Hospital course, mention meds given and route, prescriptions, significant lab abnormalities, going to OR and other pertinent info. @ - Undiagnosed new problem with uncertain prognosis? @ -no Drug Therapy requiring intensive monitoring for toxicity (Heparin, Nitro, Insulin, Cardizem)? @ -no Were any procedures done? @ -no Diagnosis/symptom? @ - Acute, or Chronic, or Acute on Chronic? @ -Acute Uncomplicated (without systemic symptoms) or Complicated (systemic symptoms)? @ -Complicated Side effects of treatment? @ -no Exacerbation, Progression, or Severe Exacerbation? @ -exacerbation Poses a threat to life or bodily function? How? (Chest pain, USA, [place], pneumonia, PE, COPD, DKA, ARF, appy, cholecystitis, CVA, Diverticulitis, Homicidal, Suicidal, threat to staff... and all critical care pts) @ -yes Reevaluation #5: 07/01/23 21:54 Differential Chest Pain: Stable Angina, Unstable Angina, STEMI, NSTEMI Aortic Dissection, Pneumothorax, Musculoskeletal, Esophageal Spasm GERD, Cholecystitis, Pancreatitis, Zoster, this is not meant to be an all-inclusive list. - Consultations Consultation #1: Spoke with Dr. Gomez we will admit this patient Chest Pain MDM - MDM 80 female with history of CABG CAD will be admitted for cardiac observation with persistent chest pain here in the ER and small troponin leak Critical Care Time Critical Care Time: Yes Total Critical Care Time: 31 Disposition Clinical Impression: CAD (coronary artery disease), Hx of CABG, Chest pain, Unstable angina pectoris Disposition: ADMITTED IP TO THIS HOSP Condition: Fair Is patient prescribed a controlled substance at d/c from ED?: No Referrals: Cole Gomez MD [Primary Care Provider] - 1-2 days Time of Disposition: 22:20
[2023-07-01 21:44] LABS: Basophils % (A) 0 %; Eosinophils # (A) 0.5 k/uL (0-0.7); Eosinophils % (A) 7 %; HCT 39.4 % (39.0-53.0); HGB 12.9 gm/dL (13.0-17.5); Lymphocytes # (A) 1.6 k/uL (1.0-4.8); Lymphocytes % (A) 22 %; MCH 33.1 pg (25.0-35.0); MCHC 32.7 g/dL (31.0-37.0); MCV 101.1 fL (80.0-100.0); Mean Platelet Volume 7.4; Monocytes # (A) 0.5 k/uL (0-1.0); Monocytes % (A) 7 %; Neutrophils # (A) 4.4 k/uL (1.3-7.7); Neutrophils % (A) 62 %; Platelet Count 178 k/uL (150-450); RDW 13.1 % (11.5-15.5); WBC 7.1 k/uL (3.8-10.6)
[2023-07-01 21:56] LABS: ALT 23 U/L (4-49); AST 24 U/L (17-59); African American GFR (CKD) 47 (>60 ml/min/1.73 sqM); Albumin 3.8 g/dL (3.5-5.0); Alkaline Phosphatase 49 U/L (38-126); Anion Gap 8 mmol/L; Blood Urea Nitrogen 32 mg/dL (9-20); Calcium 9.2 mg/dL (8.4-10.2); Carbon Dioxide 28 mmol/L (22-30); Chloride 107 mmol/L (98-107); Glucose 116 mg/dL (74-99); Lipase 174 U/L (23-300); Magnesium 2.3 mg/dL (1.6-2.3); Non-African American GFR(CKD) 41 (>60 ml/min/1.73 sqM); Potassium 4.1 mmol/L (3.5-5.1); Sodium 143 mmol/L (137-145); Total Bilirubin 0.5 mg/dL (0.2-1.3); Total Protein 6.2 g/dL (6.3-8.2)
[2023-07-01 21:57] LABS: INR 1.1 (<1.2); Partial Thromboplastin Time 27.9 sec (22.0-30.0); Prothrombin Time 11.9 sec (10.0-12.5)
[2023-07-01 22:03] LABS: NT-Pro-B-Type Natriuretic Pept 409 pg/mL
--- NOTE | 2023-07-01 22:03 | XR ---
EXAMINATION: XR chest 1V portable DATE AND TIME: 07/01/2023 9:45 PM CLINICAL INDICATION: PHH; chest pain TECHNIQUE: AP upright portable COMPARISON: 10/04/2015 FINDINGS: The lungs are clear, other than minimal scarring at the left lung base seen on the prior study. The pleural spaces are negative. Dual lead cardiac pacemaker. Sternal sutures and mediastinal clips and EKG leads. The cardiac silhoue tte appears mildly enlarged. The skeletal structures and soft tissues are negative for acute findings. IMPRESSION: No acute radiographic process.
[2023-07-01] MEDS ORDERED: HEPARIN SODIUM 1,000 UN/ML (10ML VL) IV ONE (22:24)
[2023-07-01] MEDS ORDERED: HEPARIN SODIUM 1,000 UN/ML (10ML VL) IV PRN (22:24)
[2023-07-01] MEDS ORDERED: MORPHINE SULFATE 4 MG/ML SYRINGE IV PRN (22:24)
[2023-07-01] MEDS ORDERED: NALOXONE 0.4 MG/ML 1 ML VIAL IV PRN (22:24)
[2023-07-01] MEDS ORDERED: ONDANSETRON 4 MG/2 ML VIAL IVP PRN (22:24)
[2023-07-01] MEDS ORDERED: HEPARIN SOD,PORK IN 0.45% NACL 25,000 UNIT in 0.45% NACL 1 250ML.BAG IV SCH (22:30)
[2023-07-02 05:11] LABS: ALT 22 U/L (4-49); AST 24 U/L (17-59); African American GFR (CKD) 51 (>60 ml/min/1.73 sqM); Albumin 3.4 g/dL (3.5-5.0); Alkaline Phosphatase 51 U/L (38-126); Anion Gap 9 mmol/L; Blood Urea Nitrogen 29 mg/dL (9-20); Calcium 9.1 mg/dL (8.4-10.2); Carbon Dioxide 28 mmol/L (22-30); Chloride 105 mmol/L (98-107); Glucose 94 mg/dL (74-99); Magnesium 2.3 mg/dL (1.6-2.3); Non-African American GFR(CKD) 44 (>60 ml/min/1.73 sqM); Potassium 3.9 mmol/L (3.5-5.1); Sodium 142 mmol/L (137-145); Total Bilirubin 0.7 mg/dL (0.2-1.3); Total Protein 5.8 g/dL (6.3-8.2)
[2023-07-02 06:08] LABS: Basophils % (A) 0 %; Eosinophils # (A) 0.5 k/uL (0-0.7); Eosinophils % (A) 7 %; HCT 38.7 % (39.0-53.0); HGB 12.8 gm/dL (13.0-17.5); Lymphocytes # (A) 1.8 k/uL (1.0-4.8); Lymphocytes % (A) 25 %; MCH 33.4 pg (25.0-35.0); MCV 101.4 fL (80.0-100.0); Macrocytosis Slight; Mean Platelet Volume 7.8; Monocytes # (A) 0.5 k/uL (0-1.0); Monocytes % (A) 6 %; Neutrophils # (A) 4.5 k/uL (1.3-7.7); Neutrophils % (A) 61 %; Platelet Count 178 k/uL (150-450); RBC 3.82 m/uL (4.30-5.90); RDW 13.2 % (11.5-15.5); WBC 7.3 k/uL (3.8-10.6)
[2023-07-02 06:30] VITALS: TEMP 98.7
[2023-07-02] MEDS ORDERED: carvediloL 12.5 MG TAB PO SCH (09:00)
[2023-07-02] MEDS ORDERED: amLODIPine 10 MG TAB PO SCH (09:00)
[2023-07-02] MEDS ORDERED: FUROSEMIDE 20 MG TAB PO SCH (09:00)
[2023-07-02] MEDS ORDERED: MONTELUKAST 10 MG TAB PO SCH (09:45)
[2023-07-02] MEDS ORDERED: allopurinoL 100 MG TAB PO SCH (09:45)
[2023-07-02 10:28] VITALS: PULSE 84; RESP 18
--- NOTE | 2023-07-02 13:07 | P.CRDCN ---
History of Present Illness Consult date: 07/02/23 Consult reason: chest pain History of present illness: History of present illness: This is an 83-year-old male patient of Dr. Khoury with past medical history of coronary artery disease status post CABG, ischemic cardiomyopathy, persistent atrial fibrillation status post ablation, sick sinus syndrome status post pacemaker, hypertension, dyslipidemia. We have been asked to evaluate the patient for chest pain. Patient complains of right upper anterior chest pain near his shoulder that is dull comes and goes. No tenderness and no increase in pain with deep breathing. The patient's family states that he was doing yard work yesterday and felt that he probably pulled something. Pain started yesterday afternoon. EKG paced rhythm with underlying A. fib Chest x-ray: No acute process WBC 7.3, hemoglobin 12.8, electrolytes normal. BUN 29 creatinine 1.46. Troponin negative 3. Liver function tests are normal. Magnesium 2.3. Lipase 174. Home cardiac medications: Amlodipine 10 mg daily, aspirin 81 mg daily, atorvastatin 40 mg at bedtime, Coreg 12.5 mg twice daily, Lasix 20 mg twice daily. Tilt table test 05/20/2023 for recurrent syncope revealed atrial fibrillation with ventricular pacing. Mild orthostatic hypotension syndrome. Echocardiogram performed in the office 11/2021 revealed EF 45-50%. Moderate concentric left ventricular hypertrophy. [id number] mitral regurgitation, [id number] tricuspid regurgitation, PAS P 38 mmHg. Review Of Systems: At the time of my evaluation: Constitutional: No fever, no chills. No weakness, fatigue or lethargy. EENT: No headache. No dizziness. Lungs: No shortness of breath, cough, no sputum production. No wheezing. Cardiovascular: No chest pain, no lower extremity edema. No palpitations. No paroxysmal nocturnal dyspnea. No orthopnea. No lightheadedness or dizziness. No syncopal episodes. Abdominal: No abdominal pain. No nausea, vomiting. Musculoskeletal: No myalgias. No muscle weakness, no frequent falls. Integumentary: No wounds. No rash. No unusual bruising. Neurologic: No aphasia. No facial droop. No change in mentation. Physical examination: Gen: This is an 83-year-old male resting on ER stretcher appears to be comfortable and in no acute distress. VS: reviewed HEENT: Head is atraumatic, normocephalic. Pupils equal, round. Sclerae is anicteric. NECK: Supple. No JVD. LUNGS: Clear to auscultation. No wheezes or rhonchi. No intercostal retractions. HEART: Regular rate and rhythm. ABDOMEN: Soft No tenderness. EXTREMITIES: No pedal edema. No calf tenderness. NEUROLOGICAL: Patient is awake, alert and oriented x3. Assessment: Atypical chest pain History of coronary artery disease status post CABG Ischemic cardiomyopathy Persistent atrial fibrillation status post ablation 6 sinus syndrome status post pacemaker Hypertension Dyslipidemia Plan: Continue patient's home cardiac medications and discontinue aspirin at discharge No cardiac workup is needed at this time and patient is cleared for discharge home. Patient may follow-up with Dr. Khoury in 2 weeks. Thank you kindly for this consultation. Nurse practitioner note has been reviewed, I agree with documented findings and plan of care. Patient was seen and examined. Past Medical History Past Medical History: Asthma, Coronary Artery Disease (CAD), Cancer, GERD/Reflux, Hearing Disorder / Deafness, Hyperlipidemia, Hypertension, Memory Impairment, Myocardial Infarction (NM), Osteoarthritis (OA), Sleep Apnea/CPAP /BIPAP Additional Past Medical History / Comment(s): See Cardiology H&P. HX CHEST PAIN W/ EXERTION. HX SKIN CANCER. Asthma resolved. CPAP use. Age related memory impairment. Hard of hearing. Last Myocardial Infarction Date:: 2007 History of Any Multi-Drug Resistant Organisms: None Reported Past Surgical History: Adenoidectomy, Cardiac Ablation, Coronary Bypass/CABG, Heart Catheterization With Stent, Hernia Repair, Orthopedic Surgery, Pacemaker, Tonsillectomy Additional Past Surgical History / Comment(s): Quadruple vessel CABG 2007, umbilical hernia repair X2, blepheroplasty, total 4 cardiac stents, skin tags removed, colonoscopy/benign polyps removed, hemorroidectomy, right knee arthroscopy, cardiac ablation X2, skin cancer removed from left ear. Past Anesthesia/Blood Transfusion Reactions: No Reported Reaction Date of Last Stent Placement:: 2007 Type of Cardiac Device: Permanent Pacemaker Device Placement Date:: ? Past Psychological History: No Psychological Hx Reported Smoking Status: Never smoker Past Alcohol Use History: None Reported Past Drug Use History: None Reported - Past Family History Father Family Medical History: Myocardial Infarction (NM) Mother Family Medical History: Cancer Additional Family Medical History / Comment(s): SKIN CANCER. Medications and Allergies Home Medications Medication Instructions Recorded Confirmed Type Famotidine 40 mg PO HS 03/26/14 07/01/23 History Montelukast [Singulair] 10 mg PO DAILY 03/26/14 07/01/23 History Atorvastatin [Lipitor] 40 mg PO HS 04/24/14 07/01/23 History Diclofenac Sodium [Voltaren] 50 mg PO HS 08/25/17 07/01/23 History Edoxaban Tosylate [Savaysa] 60 mg PO HS 08/25/17 07/01/23 History Tamsulosin [Flomax] 0.4 mg PO HS 08/25/17 07/01/23 History allopurinoL [Zyloprim] 100 mg PO DAILY 08/25/17 07/01/23 History amLODIPine [Norvasc] 10 mg PO DAILY 08/25/17 07/01/23 History Aspirin 81 mg PO DAILY 01/31/18 07/01/23 History Cholecalciferol [Vitamin D3 (25 25 mcg PO HS 05/18/23 07/01/23 History Mcg = 1000 Iu)] Furosemide [Lasix] 20 mg PO BID 05/18/23 07/01/23 History carvediloL 12.5 mg PO BID 05/18/23 07/01/23 History Candesartan Cilexetil 32 mg PO HS 07/01/23 07/01/23 History tadalafiL 10 mg PO DAILY PRN 07/01/23 07/01/23 History Allergies Allergy/AdvReac Type Severity Reaction Status Date / Time No Known Allergies Allergy Verified 07/01/23 22:32 Physical Exam Vitals: Vital Signs Temp Pulse Resp BP Pulse Ox 07/02/23 08:00 52 L 17 152/75 93 L 07/02/23 06:09 98.7 F 54 L 17 143/77 95 07/02/23 05:30 51 L 18 147/76 96 07/02/23 05:00 51 L 17 149/71 95 07/02/23 04:30 49 L 17 153/74 96 07/02/23 04:00 49 L 16 143/77 95 07/02/23 03:30 49 L 17 150/72 95 07/02/23 03:00 49 L 18 138/77 95 07/02/23 02:30 55 L 18 150/67 89 L 07/02/23 02:00 60 17 148/74 88 L 07/02/23 01:30 55 L 18 159/73 94 L 07/02/23 01:00 54 L 17 149/68 95 07/02/23 00:30 49 L 16 144/66 95 07/01/23 23:53 55 L 17 136/65 95 07/01/23 23:45 56 L 17 134/62 95 07/01/23 23:30 55 L 18 126/67 95 07/01/23 23:15 137/63 96 07/01/23 23:00 139/53 93 L 07/01/23 22:45 144/73 95 07/01/23 22:30 49 L 131/67 96 07/01/23 22:15 49 L 23 129/67 94 L 07/01/23 22:00 49 L 22 120/63 94 L 07/01/23 21:45 49 L 21 130/62 94 L 07/01/23 21:34 22 07/01/23 20:51 98.2 F 55 L 16 130/66 96 Intake and Output 07/01/23 07/02/23 07/02/23 22:59 06:59 14:59 Other: Weight 90.718 kg Results 07/02/23 04:23 07/02/23 04:23 Cardiac Enzymes 07/01/23 07/01/23 07/02/23 Range/Units 21:21 21:21 00:03 AST 24 (17-59) U/L Troponin I 0.013 0.013 (0.000-0.034) ng/mL 07/02/23 07/02/23 Range/Units 04:23 04:23 AST 24 (17-59) U/L Troponin I 0.016 (0.000-0.034) ng/mL Coagulation 07/01/23 07/02/23 Range/Units 21:21 04:23 PT 11.9 (10.0-12.5) sec APTT 27.9 54.1 H (22.0-30.0) sec CBC 07/01/23 07/02/23 Range/Units 21:21 04:23 WBC 7.1 7.3 (3.8-10.6) k/uL RBC 3.90 L 3.82 L (4.30-5.90) m/uL Hgb 12.9 L 12.8 L (13.0-17.5) gm/dL Hct 39.4 38.7 L (39.0-53.0) % Plt Count 178 178 (150-450) k/uL Comprehensive Metabolic Panel 07/01/23 07/02/23 Range/Units 21:21 04:23 Sodium 143 142 (137-145) mmol/L Potassium 4.1 3.9 (3.5-5.1) mmol/L Chloride 107 105 (98-107) mmol/L Carbon Dioxide 28 28 (22-30) mmol/L BUN 32 H 29 H (9-20) mg/dL Creatinine 1.56 H 1.46 H (0.66-1.25) mg/dL Glucose 116 H 94 (74-99) mg/dL Calcium 9.2 9.1 (8.4-10.2) mg/dL AST 24 24 (17-59) U/L ALT 23 22 (4-49) U/L Alkaline Phosphatase 49 51 (38-126) U/L Total Protein 6.2 L 5.8 L (6.3-8.2) g/dL Albumin 3.8 3.4 L (3.5-5.0) g/dL Current Medications Generic Name Dose Route Start Last Admin Trade Name Freq PRN Reason Stop Dose Admin Amlodipine Besylate 10 mg 07/02/23 09:00 Amlodipine 10 Mg Tab PO DAILY [facility] Atorvastatin Calcium 40 mg 07/02/23 21:00 Atorvastatin 40 Mg Tab PO HS [facility] Carvedilol 12.5 mg 07/02/23 09:00 Carvedilol 12.5 Mg Tab PO BID-W/MEALS [facility] Edoxaban 30 mg 07/02/23 21:00 Edoxaban Tosylate 30 Mg Tablet PO HS [facility] Protocol Furosemide 20 mg 07/02/23 09:00 Furosemide 20 Mg Tab PO BID [facility] Morphine Sulfate 4 mg 07/01/23 22:24 Morphine Sulfate 4 Mg/Ml Syringe IV Q4HR PRN Severe Pain (Scale 7 to 10) Naloxone HCl 0.2 mg 07/01/23 22:24 Naloxone 0.4 Mg/Ml 1 Ml Vial IV Q2M PRN Opioid Reversal Ondansetron HCl 4 mg 07/01/23 22:24 Ondansetron 4 Mg/2 Ml Vial IVP Q8HR PRN Nausea And Vomiting Intake and Output 07/01/23 07/02/23 07/02/23 22:59 06:59 14:59 Other: Weight 90.718 kg 07/02/23 04:23 07/02/23 04:23
--- NOTE | 2023-07-02 13:12 | P.HPIM ---
History of Present Illness H&P Date: 07/02/23 Chief Complaint: Patient presented with the right-sided chest pain chest wall History and physical date of service 07/02/[address] Bermudez. Chief complaint patient presented to the emergency room doctor Cal who felt the patient needs to be admitted for observation because of his chest pain and previous history of coronary artery disease bypass graft 4 and history of stent in the past. History of present illness 83 years old white male seen in the emergency room and admitted however his location still in the room 10 in the ER and the reason for admission chest pain. Pain in the right-sided with the underlying history that he recking his relief and they aren't one day prior to the observation of the chest pain. No radiation to the neck not precordia pain and pain was intermittent with the muscle spasm. Dr. Mccall was uncomfortable to send the patient home and he placed him on observation ER room 10. Because also patient stated that he have tightness and heaviness of the chest. Review of system was negative was pertinent to only chest pain on the right side EKG was indicating paced rhythm due to pacemaker Past medical history: He has a history of COPD asthma and GERD disease bilateral hearing disorder with a hearing aid, hyperlipidemia, hypertension, history of AK in the past osteotic arthritis sleep apnea with BiPAP at home. Last AK 2007 Surgical history at the knee endarterectomy, cardiac ablation by Dr. Khoury, coronary bypass graft 4, cardiac catheterization with a stent, hernia repair, pacemaker, tonsillectomy, umbilical hernia repair 2 and blepharoplasty, for cardiac stent, colonoscopy with benign polyps removed, hemorrhoidectomy, right knee arthroplasty, cardiac ablation 2, skin cancer removed from the left ear. Family history father AK mother cancer. Physical exam: Temperature on admission 98.2 Oral Heart Rate 55/M Was Bradycardia, Blood Pressure 130/66, Oxygen Saturation 96%. Head Was Normocephalic and Atraumatic He Had Central Baldness and Worrying Apiece for That Her Hearing Aid Bilateral Natural Teas Oropharynx Was Uvula Midline Neck Was Supple No JVD No Thyromegaly No Lymphadenopathy Trachea Midline. Chest Was Increased Anteroposterior Diameter No Wheezes No Rhonchi's with a History of COPD and Asthma Heart Patient Has a Pacemaker in the Left Infraclavicular Compensated Abdomen: Soft Positive Bowel Sounds Extremities No Edema Positive Pulses. Neurologically No Lateralizing Sign and Stable General Condition No Neuro Deficit Assessment #1 Right Sided Chest Pain #2 Stable Angina #3 Noncardiac Pain with the History of Raking His Relief in His Yard. #4 Coronary Artery Disease Atherosclerotic Heart Disease #5 Status Post Left Infraclavicular Pacemaker #6 COPD and Stable No Wheezes No Rhonchi's. Plan: Patient Admitted However Stayed in the Emergency Room Unit #10. Cardiology Consult Was Obtained and Seeing Him Today and Cleared for Discharge Troponin 13 Was Normal. Patient Will Be Discharged Home Today with the Admission and Discharge in the Same Day Same Medication to Continue at Home Past Medical History Past Medical History: Asthma, Coronary Artery Disease (CAD), Cancer, GERD/Reflux, Hearing Disorder / Deafness, Hyperlipidemia, Hypertension, Memory Impairment, Myocardial Infarction (AK), Osteoarthritis (OA), Sleep Apnea/CPAP/BIPAP Additional Past Medical History / Comment(s): See Cardiology H&P. HX CHEST PAIN W/ EXERTION. HX SKIN CANCER. Asthma resolved. CPAP use. Age related memory impairment. Hard of hearing. Last Myocardial Infarction Date:: 2007 History of Any Multi-Drug Resistant Organisms: None Reported Past Surgical History: Adenoidectomy, Cardiac Ablation, Coronary Bypass/CABG, Heart Catheterization With Stent, Hernia Repair, Orthopedic Surgery, Pacemaker, Tonsillectomy Additional Past Surgical History / Comment(s): Quadruple vessel CABG 2007, umbilical hernia repair X2, blepheroplasty, total 4 cardiac stents, skin tags removed, colonoscopy/benign polyps removed, hemorroidectomy, right knee arthroscopy, cardiac ablation X2, skin cancer removed from left ear. Past Anesthesia/Blood Transfusion Reactions: No Reported Reaction Date of Last Stent Placement:: 2007 Type of Cardiac Device: Permanent Pacemaker Device Placement Date:: ? Past Psychological History: No Psychological Hx Reported Smoking Status: Never smoker Past Alcohol Use History: None Reported Past Drug Use History: None Reported - Past Family History Father Family Medical History: Myocardial Infarction (AK) Mother Family Medical History: Cancer Additional Family Medical History / Comment(s): SKIN CANCER. Medications and Allergies Home Medications Medication Instructions Recorded Confirmed Type Famotidine 40 mg PO HS 03/26/14 07/01/23 History Montelukast [Singulair] 10 mg PO DAILY 03/26/14 07/01/23 History Atorvastatin [Lipitor] 40 mg PO HS 04/24/14 07/01/23 History Diclofenac Sodium [Voltaren] 50 mg PO HS 08/25/17 07/01/23 History Edoxaban Tosylate [Savaysa] 60 mg PO HS 08/25/17 07/01/23 History Tamsulosin [Flomax] 0.4 mg PO HS 08/25/17 07/01/23 History allopurinoL [Zyloprim] 100 mg PO DAILY 08/25/17 07/01/23 History amLODIPine [Norvasc] 10 mg PO DAILY 08/25/17 07/01/23 History Aspirin 81 mg PO DAILY 01/31/18 07/01/23 History Cholecalciferol [Vitamin D3 (25 25 mcg PO HS 05/18/23 07/01/23 History Mcg = 1000 Iu)] Furosemide [Lasix] 20 mg PO BID 05/18/23 07/01/23 History carvediloL 12.5 mg PO BID 05/18/23 07/01/23 History Candesartan Cilexetil 32 mg PO HS 07/01/23 07/01/23 History tadalafiL 10 mg PO DAILY PRN 07/01/23 07/01/23 History Allergies Allergy/AdvReac Type Severity Reaction Status Date / Time No Known Allergies Allergy Verified 07/01/23 22:32 Physical Exam Vitals: Vital Signs Temp Pulse Resp BP Pulse Ox 07/02/23 10:22 84 18 129/68 93 L 07/02/23 08:00 52 L 17 152/75 93 L 07/02/23 06:09 98.7 F 54 L 17 143/77 95 07/02/23 05:30 51 L 18 147/76 96 07/02/23 05:00 51 L 17 149/71 95 07/02/23 04:30 49 L 17 153/74 96 07/02/23 04:00 49 L 16 143/77 95 07/02/23 03:30 49 L 17 150/72 95 07/02/23 03:00 49 L 18 138/77 95 07/02/23 02:30 55 L 18 150/67 89 L 07/02/23 02:00 60 17 148/74 88 L 07/02/23 01:30 55 L 18 159/73 94 L 07/02/23 01:00 54 L 17 149/68 95 07/02/23 00:30 49 L 16 144/66 95 07/01/23 23:53 55 L 17 136/65 95 07/01/23 23:45 56 L 17 134/62 95 07/01/23 23:30 55 L 18 126/67 95 07/01/23 23:15 137/63 96 07/01/23 23:00 139/53 93 L 07/01/23 22:45 144/73 95 07/01/23 22:30 49 L 131/67 96 07/01/23 22:15 49 L 23 129/67 94 L 07/01/23 22:00 49 L 22 120/63 94 L 07/01/23 21:45 49 L 21 130/62 94 L 07/01/23 21:34 22 07/01/23 20:51 98.2 F 55 L 16 130/66 96 Intake and Output 07/01/23 07/02/23 07/02/23 22:59 06:59 14:59 Intake Total 109.667 Balance 109.667 Intake: Intake, IV Titration 109.667 Amount Heparin Sod,Pork in 0.45% 109.667 NaCl 25,000 unit In 0.45 % NaCl 1 250ml.bag @ 11. 023 UNITS/KG/HR 10 mls/hr IV .Q24H [facility] Rx#: [id number] Other: Weight 90.718 kg Results CBC & Chem 7: 07/02/23 04:23 07/02/23 04:23 Labs: Abnormal Lab Results - Last 24 Hours (Table) 07/01/23 07/01/23 07/02/23 Range/Units 21:21 21:21 04:23 RBC 3.90 L 3.82 L (4.30-5.90) m/uL Hgb 12.9 L 12.8 L (13.0-17.5) gm/dL Hct 38.7 L (39.0-53.0) % MCV 101.1 H 101.4 H (80.0-100.0) fL APTT (22.0-30.0) sec BUN 32 H (9-20) mg/dL Creatinine 1.56 H (0.66-1.25) mg/dL Glucose 116 H (74-99) mg/dL Total Protein 6.2 L (6.3-8.2) g/dL Albumin (3.5-5.0) g/dL 07/02/23 07/02/23 Range/Units 04:23 04:23 RBC (4.30-5.90) m/uL Hgb (13.0-17.5) gm/dL Hct (39.0-53.0) % MCV (80.0-100.0) fL APTT 54.1 H (22.0-30.0) sec BUN 29 H (9-20) mg/dL Creatinine 1.46 H (0.66-1.25) mg/dL Glucose (74-99) mg/dL Total Protein 5.8 L (6.3-8.2) g/dL Albumin 3.4 L (3.5-5.0) g/dL
--- NOTE | 2023-07-02 13:19 | P.DS ---
Providers Date of admission: 07/01/23 22:25 Expected date of discharge: 07/02/23 Attending physician: Cole Gomez Consults: 07/01/23 22:24 Consult Physician Routine Consulting Provider: Radha Roy Consult Reason/Comments: cp Do you want consulting provider notified?: Yes Primary care physician: Cole Gomez Discharge note Date of service 07/02/[address] Bermudez. Final diagnoses: Atypical chest pain noncardiac in origin Normal cardiac panel 3 Right-sided pain with a history of raking leaves 1 day prior to the event. Disposition: Patient discharged home today stable general condition after was cleared by cardiology this morning with the normal cardiac panel and no chest pain except for muscle pain which is resolving. Presentation to the ER right-sided chest pain. Hospital course: Patient did not move out of the ER and he was in the unit #10 but admitted on the paper under my service and requesting the also to dictated discharge summary. As patient seen by the cardiology reviewed his condition and decided that patient needs to be discharged was called to discharge the patient. On discharge: Vital signs stable, temperature 98.7 F oral, heart rate 84 bpm, respiratory rate 18 nonlabored, blood pressure 129/68 and the mean 88 oxygen saturation 93% on room air HEENT negative , Neck was supple no JVD no thyromegaly no bruits Chest is clear to auscultation and percussion Heart: Pacing with a pacemaker compensated cleared by cardiology Abdomen soft positive bowel sounds Extremities no edema, positive pulses, ambulatory. Neurologically stable. Patient stable general condition for discharge home today Follow-up with the cardiology next week Follow-up with the primary care Dr. Bermudez next week. Continue the same medication., Cardiology did not change his medicines Patient Condition at Discharge: Fair Plan - Discharge Summary New Discharge Prescriptions: Discontinued Aspirin 81 mg PO DAILY No Action Montelukast [Singulair] 10 mg PO DAILY Famotidine 40 mg PO HS Atorvastatin [Lipitor] 40 mg PO HS amLODIPine [Norvasc] 10 mg PO DAILY Tamsulosin [Flomax] 0.4 mg PO HS Edoxaban Tosylate [Savaysa] 60 mg PO HS Diclofenac Sodium [Voltaren] 50 mg PO HS allopurinoL [Zyloprim] 100 mg PO DAILY Furosemide [Lasix] 20 mg PO BID Cholecalciferol [Vitamin D3 (25 Mcg = 1000 Iu)] 25 mcg PO HS Candesartan Cilexetil 32 mg PO HS tadalafiL 10 mg PO DAILY PRN PRN Reason: E.D. carvediloL 12.5 mg PO BID Discharge Medication List Famotidine 40 mg PO HS 03/26/14 [History] Montelukast [Singulair] 10 mg PO DAILY 03/26/14 [History] Atorvastatin [Lipitor] 40 mg PO HS 04/24/14 [History] Diclofenac Sodium [Voltaren] 50 mg PO HS 08/25/17 [History] Edoxaban Tosylate [Savaysa] 60 mg PO HS 08/25/17 [History] Tamsulosin [Flomax] 0.4 mg PO HS 08/25/17 [History] allopurinoL [Zyloprim] 100 mg PO DAILY 08/25/17 [History] amLODIPine [Norvasc] 10 mg PO DAILY 08/25/17 [History] Cholecalciferol [Vitamin D3 (25 Mcg = 1000 Iu)] 25 mcg PO HS 05/18/23 [History] Furosemide [Lasix] 20 mg PO BID 05/18/23 [History] carvediloL 12.5 mg PO BID 05/18/23 [History] Candesartan Cilexetil 32 mg PO HS 07/01/23 [History] tadalafiL 10 mg PO DAILY PRN 07/01/23 [History] Follow up Appointment(s)/Referral(s): Hugo Khoury MD [STAFF PHYSICIAN] - 2 Weeks Cole Gomez MD [Primary Care Provider] - 1-2 days
[2023-07-02 14:02] VITALS: BP 128/84
[2023-07-02] MEDS ORDERED: CHOLECALCIFEROL 25 MCG (1000 IU) TABLET PO SCH (21:00)
[2023-07-02] MEDS ORDERED: ETODOLAC 200 MG CAPSULE PO SCH (21:00)
[2023-07-02] MEDS ORDERED: TAMSULOSIN 0.4 MG CAP.ER.24H PO SCH (21:00)
[2023-07-02] MEDS ORDERED: LOSARTAN 50 MG TAB PO SCH (21:00)
[2023-07-02] MEDS ORDERED: ATORVASTATIN 40 MG TAB PO SCH (21:00)
[2023-07-02] MEDS ORDERED: FAMOTIDINE 20 MG TAB PO SCH (21:00)
[2023-07-02] MEDS ORDERED: EDOXABAN TOSYLATE 30 MG TABLET PO SCH (21:00)
== END 2023-07-02 18:19 | disposition home or self-care (01) ==
LOC: EC 20:44 → 6NMEDSUR 22:25
PROVIDERS: ADMIT Internal Medicine; ATTEND Internal Medicine
DX: R07.89 Other chest pain (principal); I25.119 Atherosclerotic heart disease of native coronary artery with unspecified angina pectoris; I25.5 Ischemic cardiomyopathy; I48.19 Other persistent atrial fibrillation; E78.5 Hyperlipidemia, unspecified; J45.909 Unspecified asthma, uncomplicated; K21.9 Gastro-esophageal reflux disease without esophagitis; I10 Essential (primary) hypertension; G47.30 Sleep apnea, unspecified; I25.2 Old myocardial infarction; Z85.828 Personal history of other malignant neoplasm of skin; Z95.0 Presence of cardiac pacemaker; Z95.5 Presence of coronary angioplasty implant and graft; Z79.82 Long term (current) use of aspirin; Z79.899 Other long term (current) drug therapy; Z82.49 Family history of ischemic heart disease and other diseases of the circulatory system
CPT/HCPCS: 96376; 96365; 96366 ×2; 99291; 36415; 93005; 83880; 80053 ×2; 83690; 83735 ×2; 84100; 84484 ×2; 85025 ×2; 85610; 85730 ×2; 71045; G0378 ×2; J1644 ×2

== ENCOUNTER → 2023-12-29 | Outpatient (CLI) | payer MEDICARE, OTHER ==
[2023-12-29 10:30] LABS: Creatinine,Urine Random 39.1 mg/dL; Protein/Creatinine Ratio,Urine 0.307
[2023-12-29 14:36] LABS: Basophils # (A) 0.04 X 10*3/uL (0.00-0.10); Basophils % (A) 0.5 %; Eosinophils # (A) 0.48 X 10*3/uL (0.04-0.35); Eosinophils % (A) 6.6 %; HCT 42.1 % (39.6-50.0); HGB 13.6 g/dL (13.0-17.0); Lymphocytes # (A) 1.14 X 10*3/uL (0.90-5.00); Lymphocytes % (A) 15.6 %; MCH 32.4 pg (27.0-32.0); MCHC 32.3 g/dL (32.0-37.0); MCV 100.2 FL (80.0-97.0); Monocytes % (A) 6.8 %; NRBC Per 100 WBC 0 X 10*3/uL (0.00-0.01); Neutrophils # (A) 5.13 X 10*3/uL (1.80-7.70); Neutrophils % (A) 70.1 %; Platelet Count 174 X 10*3/uL (140-440); RDW 13.7 % (11.5-14.5); WBC 7.32 X 10*3/uL (4.50-10.00)
[2023-12-29 14:43] LABS: Erythrocyte Sedimentation Rate 4 mm/Hr (0-20)
[2023-12-29 15:19] LABS: ALT 27 U/L (10-49); AST 26 U/L (14-35); Albumin 4.4 g/dL (3.8-4.9); Alkaline Phosphatase 65 U/L (41-126); Blood Urea Nitrogen 22.1 mg/dL (9.0-27.0); C Reactive Protein <0.30 mg/dL (0.00-0.80); Calcium 9.8 mg/dL (8.7-10.3); Carbon Dioxide 24.4 mmol/L (21.6-31.8); Chloride 111 mmol/L (96-109); Chol/HDL Ratio 2.37 Ratio; Creatine Kinase 70 U/L (35-257); Globulin 2.2 g/dL (1.6-3.3); Glucose 100 mg/dL (70-110); LDL Cholesterol,Calculated 55.7 mg/dL (0.0-131.0); Magnesium 2.1 mg/dL (1.5-2.4); Phosphorus 3.2 mg/dL (2.4-5.1); Potassium 4.4 mmol/L (3.5-5.5); Sodium 144 mmol/L (135-145); Total Bilirubin 0.6 mg/dL (0.3-1.2); Total Protein 6.6 g/dL (6.2-8.2); Uric Acid 5.3 mg/dL (3.7-8.7); VLDL Calculation 8.98 mg/dL (5.00-40.00)
[2023-12-29 15:20] LABS: Prostate Specific Antigen 2.83 ng/mL (0.000-6.500)
[2023-12-30 00:10] LABS: Urine Creatinine 41.5 mg/dL (39.0-259.0)
== END | disposition home or self-care (01) ==
LOC: LABWHC1 08:31
PROVIDERS: ATTEND Internal Medicine
DX: Z00.00 Encounter for general adult medical examination without abnormal findings (principal); J44.9 Chronic obstructive pulmonary disease, unspecified; I12.9 Hypertensive chronic kidney disease with stage 1 through stage 4 chronic kidney disease, or unspecified chronic kidney disease; N40.0 Benign prostatic hyperplasia without lower urinary tract symptoms; I48.91 Unspecified atrial fibrillation; E78.5 Hyperlipidemia, unspecified; I25.10 Atherosclerotic heart disease of native coronary artery without angina pectoris; E03.9 Hypothyroidism, unspecified; M10.9 Gout, unspecified; N18.30 Chronic kidney disease, stage 3 unspecified; E55.9 Vitamin D deficiency, unspecified; I42.9 Cardiomyopathy, unspecified
CPT/HCPCS: 36415; 80053; 80061; 82043; 82306; 82550; 82570; 82607; 83036; 83735; 84100; 84153; 84156; 84443; 84550; 85025; 85652; 86140

== ENCOUNTER → 2024-01-28 | Outpatient (CLI) | payer MEDICARE, OTHER ==
--- NOTE | 2024-01-28 12:11 | XR ---
EXAMINATION TYPE: XR shoulder complete BILAT DATE OF EXAM: 01/28/2024 COMPARISON: 11/17/2022 HISTORY: Pain TECHNIQUE: Three views bilateral shoulder are submitted. FINDINGS: Left shoulder:. Severe arthropathy of the left shoulder with spurring and soft tissue ossification. S evere AC joint arthropathy. There is a cardiac device with cardiac leads and sternotomy wires. No acu te fracture. No dislocation. Synovial chondromatosis in the differential diagnosis. Prominent spurrin g along the lower margin of the humeral head. Findings similar to prior exam. Right shoulder: Severe glenohumeral joint and moderate AC joint arthropathy. Lung wilson clear. No er osive changes. No acute fracture. IMPRESSION: 1. Severe bilateral glenohumeral joint arthropathy with complete loss of joint space. 2. Moderate right and severe left AC joint arthropathy.
== END | disposition home or self-care (01) ==
LOC: RADXRMAIN 11:40
PROVIDERS: ATTEND Internal Medicine
DX: M19.012 Primary osteoarthritis, left shoulder (principal); M19.011 Primary osteoarthritis, right shoulder

== ENCOUNTER 2024-02-14 13:40 | Day surgery (SDC) | payer MEDICARE, OTHER ==
[2024-02-14] MEDS: SODIUM CHLORIDE 0.9% 500 ML 500 ML IV ONE (14:07)
[2024-02-14 14:30] LABS: Glucose,Whole Blood 103 mg/dL (70-110)
[2024-02-14] MEDS: IOPAMIDOL-370 125ML BTL INJ ONE (16:12)
--- NOTE | 2024-02-14 16:47 | P.EPPROC ---
- EP Procedure Note Electrophysiology Procedure Note: Diagnosis Mild ischemic cardiomyopathy RV pacing greater than 40% Cinefluoroscopy of the leads Patient has a dual-chamber pacemaker. 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
== END 2024-02-14 16:43 | disposition home or self-care (01) ==
LOC: CATHEP 13:40
PROVIDERS: ATTEND Internal Medicine Clinical Cardiac Electrophysiology
DX: I25.5 Ischemic cardiomyopathy (principal); I48.19 Other persistent atrial fibrillation; I25.10 Atherosclerotic heart disease of native coronary artery without angina pectoris; I50.22 Chronic systolic (congestive) heart failure; Z79.899 Other long term (current) drug therapy; Z95.0 Presence of cardiac pacemaker
CPT/HCPCS: 36005; 75820; Q9967

== ENCOUNTER → 2024-03-24 | Outpatient (CLI) | payer MEDICARE, OTHER ==
--- NOTE | 2024-05-01 12:35 | XR ---
Patient: Gonzalez Muniz C Ordering Physician: Unknown, Unknown ID: [id number] Phone, Pager: Phone: N /A Pager: N/A : [phone] Age/Gender: 84Y, M Primary Location: N/A Procedure: XR Hip Bilateral and AP pelvis Study Date: 03/24/2024 10:14:00 AM EXAMINATION TYPE: XR Hip Bilateral and AP pelvis DATE OF EXAM: 04/09/2024 11:45 AM CLINICAL INDICATION: Pain COMPARISON: None. TECHNIQUE: XR Hip Bilateral and AP pelvis; hip was examined in the frontal and lateral projections an d a AP pelvis. FINDINGS: No evidence for acute process, joint dislocation or significant soft tissue swelling. Osteo phyte formation of the superior acetabulum of the hip. There is [id number] joint space narrowin g. Atherosclerosis of the arterial vasculature. Degeneration changes of the sacroiliac joints and low er spine. IMPRESSION: 1. No evidence for acute process. 2. Moderate hip osteoarthrosis.
== END | disposition home or self-care (01) ==
LOC: RADXRMAIN 09:45
PROVIDERS: ATTEND Internal Medicine
DX: M25.559 Pain in unspecified hip (principal); M16.0 Bilateral primary osteoarthritis of hip
CPT/HCPCS: 73521; 80048; 84450; 84460; 84550; 85652; 86038; 86140; 86200; 86225; 86431

== ENCOUNTER → 2024-07-11 | Outpatient (CLI) | payer MEDICARE, OTHER ==
[2024-07-11 10:32] LABS: Creatinine,Urine Random 99.7 mg/dL
[2024-07-11 15:18] LABS: BUN/Creat Ratio 23.56 Ratio (12.00-20.00); Blood Urea Nitrogen 37.7 mg/dL (9.0-27.0); Calcium 9.8 mg/dL (8.7-10.3); Carbon Dioxide 25.4 mmol/L (21.6-31.8); Chloride 105 mmol/L (96-109); Glucose 104 mg/dL (70-110); Potassium 5.1 mmol/L (3.5-5.5); Sodium 146 mmol/L (135-145)
[2024-07-11 16:40] LABS: Basophils # (A) 0.03 X 10*3/uL (0.00-0.10); Basophils % (A) 0.4 %; Eosinophils # (A) 0.27 X 10*3/uL (0.04-0.35); Eosinophils % (A) 3.8 %; HCT 45.7 % (39.6-50.0); HGB 14.4 g/dL (13.0-17.0); Lymphocytes % (A) 15.3 %; MCH 31.9 pg (27.0-32.0); MCHC 31.5 g/dL (32.0-37.0); MCV 101.3 FL (80.0-97.0); Mean Platelet Volume 10.1 FL (9.5-12.2); Monocytes # (A) 0.48 X 10*3/uL (0.20-1.00); Monocytes % (A) 6.7 %; NRBC Per 100 WBC 0 X 10*3/uL (0.00-0.01); Neutrophils # (A) 5.26 X 10*3/uL (1.80-7.70); Neutrophils % (A) 73.4 %; Platelet Count 180 X 10*3/uL (140-440); RBC 4.51 X 10*6/uL (4.40-5.60); RDW 13.6 % (11.5-14.5); WBC 7.17 X 10*3/uL (4.50-10.00)
[2024-07-11 16:51] LABS: Appearance,Urine Clear (Clear); Bilirubin,Urine Negative (Negative); Blood,Urine Negative (Negative); Color,Urine Yellow (Yellow); Ketones,Urine Negative (Negative); Nitrite,Urine Negative (Negative); PH, Urine 5.5; Specific Gravity,Urine 1.021 (1.001-1.030)
[2024-07-11 17:27] LABS: Microalbumin Creatinine Ratio <12 mg/g Cr (0-30)
== END | disposition home or self-care (01) ==
LOC: LABWHC1 08:47
PROVIDERS: ATTEND Internal Medicine
DX: J44.9 Chronic obstructive pulmonary disease, unspecified (principal); N18.30 Chronic kidney disease, stage 3 unspecified; R80.9 Proteinuria, unspecified; R73.9 Hyperglycemia, unspecified
CPT/HCPCS: 36415; 80048; 81003; 82043; 82570; 83036; 84156; 85025

== ENCOUNTER → 2024-11-02 | Outpatient (CLI) | payer MEDICARE, OTHER ==
[2024-11-02 15:23] LABS: BUN/Creat Ratio 21.36 Ratio (12.00-20.00); Blood Urea Nitrogen 29.9 mg/dL (9.0-27.0); Calcium 9.6 mg/dL (8.7-10.3); Carbon Dioxide 26.4 mmol/L (21.6-31.8); Chloride 109 mmol/L (96-109); Glucose 94 mg/dL (70-110); Potassium 4.5 mmol/L (3.5-5.5); Sodium 144 mmol/L (135-145)
== END | disposition home or self-care (01) ==
LOC: LABWHC1 08:44
PROVIDERS: ATTEND Internal Medicine
DX: N18.30 Chronic kidney disease, stage 3 unspecified (principal); D75.89 Other specified diseases of blood and blood-forming organs
CPT/HCPCS: 36415; 80048; 82607; 82746

== ENCOUNTER → 2025-01-22 | Outpatient (CLI) | payer MEDICARE, OTHER ==
[2025-01-22 15:11] LABS: HCT 45.8 % (39.6-50.0); HGB 14.2 g/dL (13.0-17.0); MCH 32.1 pg (27.0-32.0); MCV 103.4 FL (80.0-97.0); Mean Platelet Volume 10.3 FL (9.5-12.2); NRBC Per 100 WBC 0 X 10*3/uL (0.00-0.01); Platelet Count 172 X 10*3/uL (140-440); RBC 4.43 X 10*6/uL (4.40-5.60); RDW 13.4 % (11.5-14.5); WBC 7.41 X 10*3/uL (4.50-10.00)
[2025-01-22 15:12] LABS: Basophils # (A) 0.04 X 10*3/uL (0.00-0.10); Basophils % (A) 0.5 %; Eosinophils # (A) 0.31 X 10*3/uL (0.04-0.35); Eosinophils % (A) 4.2 %; Lymphocytes # (A) 1.25 X 10*3/uL (0.90-5.00); Lymphocytes % (A) 16.9 %; Monocytes # (A) 0.51 X 10*3/uL (0.20-1.00); Monocytes % (A) 6.9 %; Neutrophils # (A) 5.28 X 10*3/uL (1.80-7.70); Neutrophils % (A) 71.2 %
[2025-01-22 15:32] LABS: Erythrocyte Sedimentation Rate 4 mm/Hr (0-20)
[2025-01-22 15:51] LABS: Chol/HDL Ratio 2.55 Ratio; Creatine Kinase 35 U/L (35-257); LDL Cholesterol,Calculated 41.4 mg/dL (0.0-131.0); Magnesium 2.2 mg/dL (1.5-2.4); Phosphorus 2.6 mg/dL (2.4-5.1); Uric Acid 4.1 mg/dL (3.7-8.7)
[2025-01-22 15:52] LABS: % Iron Saturation 19.81 (15.00-50.00); ALT 19 U/L (10-49); AST 21 U/L (14-35); Albumin 3.9 g/dL (3.8-4.9); Albumin/Globulin Ratio 1.95 Ratio (1.60-3.17); Alkaline Phosphatase 57 U/L (41-126); BUN/Creat Ratio 18.27 Ratio (12.00-20.00); Blood Urea Nitrogen 27.4 mg/dL (9.0-27.0); C Reactive Protein <0.30 mg/dL (0.00-0.80); Calcium 9.1 mg/dL (8.7-10.3); Carbon Dioxide 24.5 mmol/L (21.6-31.8); Chloride 109 mmol/L (96-109); Ferritin 34.4 ng/mL (22.0-322.0); Glucose 96 mg/dL (70-110); Iron 64 UG/DL (65-175); Potassium 4.9 mmol/L (3.5-5.5); Prostate Specific Antigen 2.45 ng/mL (0.000-6.500); Sodium 142 mmol/L (135-145); Total Bilirubin 0.4 mg/dL (0.3-1.2); Total Iron Binding Capacity 323 UG/DL (228-460); Total Protein 5.9 g/dL (6.2-8.2)
== END | disposition home or self-care (01) ==
LOC: LABWHC1 08:40
PROVIDERS: ATTEND Internal Medicine
DX: Z00.00 Encounter for general adult medical examination without abnormal findings (principal); D64.9 Anemia, unspecified; J44.9 Chronic obstructive pulmonary disease, unspecified; E87.8 Other disorders of electrolyte and fluid balance, not elsewhere classified; M10.9 Gout, unspecified; N18.30 Chronic kidney disease, stage 3 unspecified; E78.5 Hyperlipidemia, unspecified; E55.9 Vitamin D deficiency, unspecified; I12.9 Hypertensive chronic kidney disease with stage 1 through stage 4 chronic kidney disease, or unspecified chronic kidney disease
CPT/HCPCS: 36415; 80053; 80061; 82272; 82306; 82550; 82728; 83540; 83550; 83735; 83970; 84100; 84153; 84443; 84550; 85025; 85652; 86140

== ENCOUNTER → 2025-02-22 | Outpatient (CLI) | payer MEDICARE, OTHER ==
[2025-02-22 15:51] LABS: Vitamin B12 431.0 pg/mL (200.0-944.0)
== END | disposition home or self-care (01) ==
LOC: LABWHC1 10:56
PROVIDERS: ATTEND Internal Medicine
DX: D75.89 Other specified diseases of blood and blood-forming organs (principal); F52.21 Male erectile disorder; D51.0 Vitamin B12 deficiency anemia due to intrinsic factor deficiency; E29.1 Testicular hypofunction
CPT/HCPCS: 36415; 82607; 82746; 84402; 84403